=== PATIENT | female | born 1995 | race Caucasian/White ===

== ENCOUNTER 2018-10-24 13:53 | Day surgery (SDC) | payer OTHER ==
[2018-10-18 15:43] VITALS: BMI 27.4
[~2018-10-24 13:53] MED LIST: ACETAMINOPHEN TAB 500 MG TAB PO ONE; DEXAMETHASONE SOD PHOSPHATE 10 MG/ML 1 ML VIAL IV ONE; LACTATED RINGERS 1,000 ML IV SCH; MIDAZOLAM 2 MG/2 ML VIAL IV PRN; ONDANSETRON 4 MG/2 ML VIAL IVP ONE; TRANEXAMIC ACID 1,000 MG in SODIUM CHLORIDE 0.9% 100 ML IVPB ONE
[2018-10-24] MEDS ORDERED: fentaNYL (PF) 50 MCG/ML 2 ML AMP IVP ONE (14:31)
[2018-10-24] MEDS ORDERED: LIDOCAINE 1% 20 ML VIAL (10MG/ML) FOR IV START INTRADERMA ONE (14:32)
[2018-10-24] MEDS ORDERED: MELOXICAM 7.5 MG TAB PO ONE (14:44)
--- NOTE | 2018-10-24 14:46 | P.ANPRN ---
Procedure Note - Anesthesia - Nerve Block Performed Left Adductor Canal Single Time Out Performed: Yes Date of Procedure: 10/24/18 Procedure Start Time: 14:31 Procedure Stop Time: 14:41 Location of Patient Procedure: PreOp Indication: Acute Post-Operative Pain, Requested by physician Sedation Type: Sedate with meaningful contact maintained Position: Supine Catheter: None Needle Types: Pajunk Needle Gauge: 21 Technique: Ultrasound Injectate: 0.5% Ropivacaine (see comment for volume) (ropi 0.5% 30cc + 4mg dexamethasone) Blood Aspirated: No Pain Paresthesia on Injection Noted: No Resistance on Injection: Normal Events: Uneventful and Well Tolerated
[2018-10-24] MEDS ORDERED: DEXAMETHASONE SOD PHOSPHATE 4 MG/ML 1 ML VIAL ONE (15:00)
[2018-10-24] MEDS ORDERED: fentaNYL (PF) 50 MCG/ML 2 ML AMP ONE (15:00)
[2018-10-24] MEDS ORDERED: LIDOCAINE 1% INJ 10MG/ML (20 ML MDV) ONE (15:00)
[2018-10-24] MEDS ORDERED: MIDAZOLAM 2 MG/2 ML VIAL ONE (15:00)
[2018-10-24] MEDS ORDERED: PROPOFOL 10 MG/ML 20 ML VIAL IV ONE (15:00)
[2018-10-24] MEDS ORDERED: HYDROmorphone (PF) 1 MG/ML ONE (15:00)
[2018-10-24] MEDS ORDERED: ROPIVACAINE 5 MG/ML 30 ML VIAL ONE (15:00)
[2018-10-24] MEDS ORDERED: ceFAZolin 1,000 MG in SODIUM CHLORIDE 0.9% 1,000 ML IRRIGATION ONE (15:43)
[2018-10-24] MEDS ORDERED: LACTATED RINGERS 1,000 ML IV ONE (16:26)
[2018-10-24 16:53] VITALS: TEMP 98.1
[2018-10-24] MEDS: HYDROmorphone 0.5 MG/0.5 ML SYRINGE IVP PRN ×2 (17:06→17:12)
[2018-10-24 17:12] VITALS: RESP 18
[2018-10-24] MEDS ORDERED: HYDROcodone/APAP 7.5-325MG 1 EACH TAB PO ONE (17:51)
--- NOTE | 2018-10-24 18:00 | OP ---
OPERATIVE REPORT DATE OF PROCEDURE: 10/24/2018. PREOPERATIVE DIAGNOSIS: Left knee anterior cruciate ligament rupture. POSTOPERATIVE DIAGNOSIS: Left knee anterior cruciate ligament rupture. PROCEDURE PERFORMED: Left knee anterior cruciate ligament reconstruction with hamstring autograft. SURGEON: Bryant Cristina MD. ENERGY PROJECT ENGINEER: Deangelo ARNOLD. ANESTHESIA: General endotracheal. ESTIMATED BLOOD LOSS: Minimal. TOURNIQUET TIME: 42 minutes at 250 mmHg. DRAINS: None. COMPLICATIONS: None apparent. DISPOSITION: Postanesthesia Care unit. INDICATIONS: Estela is a 23-year-old female who injured her left knee. Physical examination and MRI are consistent with a complete rupture of the anterior cruciate ligament. A long discussion with her with regard to treatment options. At this point, she does wish to proceed with operative intervention. Risks were explained to the patient which include, but are not limited to risk of infection, nerve damage, bleeding, pain, instability, deep vein thrombosis which could lead to fatal pulmonary embolism and graft rerupture. The patient understands these risks and wished to proceed with surgical procedure. Examination under anesthesia: Range of motion: Right full, left full. Effusion: Right none, left mild. Brice's right normal with good end point. Left: Increased 5 mm with soft end point. Pivot shift right grade 0, left grade 1. Posterior drawer right with good end point, left good end point. Varus laxity right none, left none valgus laxity right none, left none. External rotation: Right normal, left normal. ARTHROSCOPIC FINDINGS: Suprapatellar pouch is normal. Medial gutter normal. Lateral gutter normal. Patella normal chondral surfaces. Trochlea normal chondral surfaces. Patellar tracking is normal. Medial femoral condyle: Normal chondral surfaces. Medial tibial plateau: Normal chondral surfaces. Medial meniscus was normal. Lateral femoral condyle normal chondral surfaces, lateral tibial plateau normal chondral surfaces. Lateral meniscus was normal. Anterior cruciate ligament: Complete midsubstance rupture of the anterior cruciate ligament, posterior cruciate ligament normal. DESCRIPTION OF THE PROCEDURE: Patient identified in preop holding area. Surgical site was marked by both the patient and myself. She was given 2 g of Ancef IV for prophylactic purposes. She was then transported to the operative suite. She was placed supine on the operative table. General anesthetic was then administered and dosed per the anesthesia without apparent complication. Examination under anesthesia was then performed of both knees. The findings noted above. Tourniquet was then placed high on the left upper thigh well-padded in preparation for surgery. The tourniquet was not inflated throughout the entire procedure. The patient's left lower extremity was then prepped and draped in usual sterile fashion. Standard surgical pause undertaken to ensure the operating the correct site and that we were operating on the correct site and appropriate preoperative antibiotics were given. All staff were in agreement we proceeded. The knee was then insufflated to 120 mL sterile saline solution. This was done to gradually distend the joint. A standard inferolateral portal was then made. A 30 degree arthroscope was introduced into the suprapatellar pouch. The arthroscopic pump pressure was set to 60 mmHg and maintained at that level throughout the entire case. Next utilizing an 18-gauge spinal needle to topically localize the placement, the inferomedial port was made under direct visualization. A standard diagnostic arthroscopy of the knee was then performed. The findings noted as above. Of note, there was suggestion of a medial meniscus tear on her preoperative MRI. The medial meniscus was carefully probed both the superior and inferior surface of the posterior horn as well as posterior root attachment. There was no evidence of a meniscus tear. The arthroscope was then placed medial to the posterior cruciate ligament through the notch of the posteromedial compartment knee. I was able to visualize the posterior meniscocapsular junction. There was no evidence of a ramp lesion. At this point time, we proceeded with harvesting the hamstring tendons for autograft. The arthroscopic equipment was removed from the knee. The leg was then exsanguinated with an Esmarch dressing. The tourniquet was then inflated to 250 mmHg. A small longitudinal incision was then made approximately 1.5 cm medial to the tibial tubercle. Dissection carried down through the subcutaneous tissues until the sartorius tendon was identified. The sartorius was then incised using an L-shaped incision. The sartorius tendon was then retracted and the gracilis and semitendinosus tendons were identified. These tendons were then tagged with 2-0 Vicryl sutures. The tendons were then released from their insertion onto the tibia and stripped of their soft tissue attachments using a blunt technique as well as using scissors. The tendons were then harvested using a closed tendon stripper. The tendons then taken to the back table where muscle fibers were scraped off the tendons. The ends of the tendons were then whip stitched using a #2 Orthocord suture. The tendon was then double the form of 4 stranded hamstring graft. The graft diameter was measured a size at 7 mm. operator/assistant foreman was critical at this portion of the case. They provided adequate exposure to safely harvest the hamstring tendons. In addition the registered dental assistant completed the graft preparation allowing for decreased operating time further enhancing the safety of the procedure. Attention was then returned to the knee. The remnants of the anterior cruciate ligament then debrided utilizing arthroscopic shaver. The NetClarity ACL guide was then placed into the knee with tip held flush against the lateral wall of the notch. The knee was then brought into full extension. The tibial guide pin drilled from the anteromedial tibia into the knee. The knee was then flexed and pin positioned arthroscopically assessed to ensure that it was in the proper position. The tibial tunnel was then created using a cannulated reamer equal size of the hamstring graft was 7 mm. A minimal lateral notchplasty was then performed utilizing the synovial shaver in a william-type fashion. The femoral origin of the anterior cruciate ligament was clearly identified. The femoral guide was then placed at the origin of the anterior cruciate ligament with a planned back wall thickness of 1 mm. Femoral tunnel was then created with a cannulated reamer to a depth of 20 mm. The size of the reamer was again same size of the hamstring graft. Next, a 4.5 mm cannulated drill was used to penetrate the lateral femoral cortex. The Biomet toggle lock femoral fixation device was then opened. The graft was placed through the closed loop of the device. A Beath pin was passed through the tibial and femoral tunnels, now through the soft tissues of the lateral thigh. The lead sutures of the fixation device were then placed in the eye with fixation device advanced through the tunnels and soft tissues of the lateral thigh. The device was then advanced through the tunnels and locked on the lateral femoral cortex. The closed loop was then shortened and the graft advanced to the base of the femoral tunnel. Femoral fixation was excellent. The graft was then cycled 30 times. No impingement was noted on the intercondylar roof or lateral intercondylar wall. Tibial fixation was then achieved using a bioabsorbable Interfix screw and sheath. This was performed at 20 degrees of flexion with a posterior drawer force applied to the tibia. This resulted in excellent fixation. The arthroscope was placed back into the knee and the graft again visualized. Tension of the graft seen to be excellent. No impingement was noted. Full range of motion was noted. The Brice test noted to be normal. At this point, the arthroscopic equipment was removed from the knee. The tibial incision was thoroughly irrigated. The tourniquet was deflated. Total tourniquet time for the procedure was 42 minutes. Next, the sartorius fascia was closed with 2-0 Vicryl interrupted suture. This subcutaneous tissue closed with 2-0 Vicryl interrupted suture and the skin was closed with 3-0 nylon interrupted suture. The arthroscopic portals were closed with 3-0 nylon interrupted suture. Sterile compressive dressing was then applied. The patient placed into a hinged knee brace, locked in full extension. The patient tolerated the procedure well and was transferred recovery room in good condition. Rehab plan: Routine anterior cruciate ligament reconstruction rehab protocol. MMIRMAL / TANESHA: [id number] /
[2018-10-24 18:13] VITALS: BP 136/85; PULSE 93
== END 2018-10-24 18:38 | disposition home or self-care (01) ==
LOC: OR 13:53
PROVIDERS: ATTEND Orthopaedic Surgery Sports Medicine
DX: S83.512A Sprain of anterior cruciate ligament of left knee, initial encounter (principal); X50.1XXA Overexertion from prolonged static or awkward postures, initial encounter; Y93.64 Activity, baseball
CPT/HCPCS: 29888; 64447; 81025; C1713; J2250; J1100 ×2; J0690 ×2; J2405; J2001; J3010; J1170 ×2; J2795; J2704

== ENCOUNTER 2021-02-24 05:35 | Emergency (ER) | payer OTHER ==
[2021-02-24 05:44] VITALS: TEMP 98.1
--- NOTE | 2021-02-24 06:45 | ED ---
General Adult HPI - General Chief complaint: Vaginal Bleeding Stated complaint: Cramping Time Seen by Provider: 02/24/21 06:03 Source: patient, RN notes reviewed Mode of arrival: ambulatory Limitations: no limitations - History of Present Illness Initial comments: 25-year-old female presents emergency Department chief complaint of vaginal bleeding. Patient states that she had a miscarriage 2 weeks ago she states she was only approximately 5 weeks . Patient did follow-up with her NURSING MANAGER on February 11 2021 was tolerating was clear patient that she is o+ blood type. Patient states that she started having episodes of abdominal, pelvic cramping states that she has been spotting and felt that she passed some tissue. Patient was concerned she states bleeding has stopped, she has mild cramping only currently. Patient does have a history of PCO as denies any dysuria, hematuria denies any fevers chills no nausea vomiting diarrhea constipation - Related Data Previous Rx's Medication Instructions Recorded HYDROcodone/APAP 7.5-325MG [[place] 1 - 2 each PO Q6HR PRN #56 tab 10/24/18 7.5-325] Allergies Allergy/AdvReac Type Severity Reaction Status Date / Time No Known Allergies Allergy Verified 02/24/21 05:44 Review of Systems ROS Statement: Those systems with pertinent positive or pertinent negative responses have been documented in the HPI. ROS Other: All systems not noted in ROS Statement are negative. Past Medical History Past Medical History: No Reported History History of Any Multi-Drug Resistant Organisms: None Reported Additional Past Surgical History / Comment(s): wisdom teeth removed with anesthesia Past Anesthesia/Blood Transfusion Reactions: No Reported Reaction Past Psychological History: No Psychological Hx Reported Smoking Status: Never smoker Past Alcohol Use History: Occasional Past Drug Use History: None Reported - Past Family History Mother Family Medical History: No Reported History General Exam Limitations: no limitations General appearance: alert, in no apparent distress Head exam: Present: atraumatic, normocephalic, normal inspection Respiratory exam: Present: normal lung sounds bilaterally. Absent: respiratory distress, wheezes, rales, rhonchi, stridor Cardiovascular Exam: Present: regular rate, normal rhythm, normal heart sounds. Absent: systolic murmur, diastolic murmur, rubs, gallop, clicks GI/Abdominal exam: Present: soft, tenderness (Mild suprapubic), normal bowel sounds. Absent: distended, guarding, rebound, rigid Back exam: Absent: CVA tenderness (R), CVA tenderness (L) Neurological exam: Present: alert Skin exam: Present: warm, dry, intact, normal color. Absent: rash Course Vital Signs 02/24/21 05:41 Temperature 98.1 F Pulse Rate 95 Respiratory 18 Rate Blood Pressure 146/100 O2 Sat by Pulse 98 Oximetry Medical Decision Making - Medical Decision Making Labs unremarkable on ultrasound is unremarkable patient will be discharged in stable condition return parameters were discussed. - Lab Data Result diagrams: 02/24/21 06:52 02/24/21 06:52 Lab Results 02/24/21 02/24/21 02/24/21 Range/Units 06:46 06:52 06:52 WBC 5.3 (3.8-10.6) k/uL RBC 4.95 (3.80-5.40) m/uL Hgb 14.3 (11.4-16.0) gm/dL Hct 42.3 (34.0-46.0) % MCV 85.6 (80.0-100.0) fL MCH 28.9 (25.0-35.0) pg MCHC 33.7 (31.0-37.0) g/dL RDW 12.2 (11.5-15.5) % Plt Count 225 (150-450) k/uL MPV 8.6 Neutrophils % 63 % Lymphocytes % 25 % Monocytes % 7 % Eosinophils % 2 % Basophils % 1 % Neutrophils # 3.3 (1.3-7.7) k/uL Lymphocytes # 1.3 (1.0-4.8) k/uL Monocytes # 0.4 (0-1.0) k/uL Eosinophils # 0.1 (0-0.7) k/uL Basophils # 0.0 (0-0.2) k/uL Sodium 137 (137-145) mmol/L Potassium 4.2 (3.5-5.1) mmol/L Chloride 102 (98-107) mmol/L Carbon Dioxide 25 (22-30) mmol/L Anion Gap 10 mmol/L BUN 13 (7-17) mg/dL Creatinine 0.77 (0.52-1.04) mg/dL Est GFR (CKD-EPI)AfAm >90 (>60 ml/min/1.73 sqM) Est GFR (CKD-EPI)NonAf >90 (>60 ml/min/1.73 sqM) Glucose 93 (74-99) mg/dL Calcium 9.5 (8.4-10.2) mg/dL Urine Color Urine Appearance (Clear) Urine pH (5.0-8.0) Ur Specific [place] (1.001-1.035) Urine Protein (Negative) Urine Glucose (UA) (Negative) Urine Ketones (Negative) Urine Blood (Negative) Urine Nitrite (Negative) Urine Bilirubin (Negative) Urine Urobilinogen (<2.0) mg/dL Ur Leukocyte Esterase (Negative) Blood Type O Positive Blood Type Recheck No Previous Record Bld Type Recheck Status [facility] ONLY 02/24/21 Range/Units 06:52 WBC (3.8-10.6) k/uL RBC (3.80-5.40) m/uL Hgb (11.4-16.0) gm/dL Hct (34.0-46.0) % MCV (80.0-100.0) fL MCH (25.0-35.0) pg MCHC (31.0-37.0) g/dL RDW (11.5-15.5) % Plt Count (150-450) k/uL MPV Neutrophils % % Lymphocytes % % Monocytes % % Eosinophils % % Basophils % % Neutrophils # (1.3-7.7) k/uL Lymphocytes # (1.0-4.8) k/uL Monocytes # (0-1.0) k/uL Eosinophils # (0-0.7) k/uL Basophils # (0-0.2) k/uL Sodium (137-145) mmol/L Potassium (3.5-5.1) mmol/L Chloride (98-107) mmol/L Carbon Dioxide (22-30) mmol/L Anion Gap mmol/L BUN (7-17) mg/dL Creatinine (0.52-1.04) mg/dL Est GFR (CKD-EPI)AfAm (>60 ml/min/1.73 sqM) Est GFR (CKD-EPI)NonAf (>60 ml/min/1.73 sqM) Glucose (74-99) mg/dL Calcium (8.4-10.2) mg/dL Urine Color Light Yellow Urine Appearance Clear (Clear) Urine pH 6.5 (5.0-8.0) Ur Specific [place] 1.006 (1.001-1.035) Urine Protein Negative (Negative) Urine Glucose (UA) Negative (Negative) Urine Ketones Negative (Negative) Urine Blood Negative (Negative) Urine Nitrite Negative (Negative) Urine Bilirubin Negative (Negative) Urine Urobilinogen <2.0 (<2.0) mg/dL Ur Leukocyte Esterase Negative (Negative) Blood Type Blood Type Recheck Bld Type Recheck Status Disposition Clinical Impression: Vaginal bleeding Disposition: HOME SELF-CARE Condition: Stable Instructions (If sedation given, give patient instructions): Miscarriage (ED) Additional Instructions: Please return to the Emergency Department if symptoms worsen or any other concerns. Is patient prescribed a controlled substance at d/c from ED?: No Referrals: None,Stated [Primary Care Provider] - 1-2 days Time of Disposition: 08:21
[2021-02-24 07:00] LABS: Basophils % (A) 1 %; Eosinophils # (A) 0.1 k/uL (0-0.7); Eosinophils % (A) 2 %; HCT 42.3 % (34.0-46.0); HGB 14.3 gm/dL (11.4-16.0); Lymphocytes # (A) 1.3 k/uL (1.0-4.8); Lymphocytes % (A) 25 %; MCH 28.9 pg (25.0-35.0); MCHC 33.7 g/dL (31.0-37.0); MCV 85.6 fL (80.0-100.0); Mean Platelet Volume 8.6; Monocytes # (A) 0.4 k/uL (0-1.0); Monocytes % (A) 7 %; Neutrophils # (A) 3.3 k/uL (1.3-7.7); Neutrophils % (A) 63 %; Platelet Count 225 k/uL (150-450); RBC 4.95 m/uL (3.80-5.40); RDW 12.2 % (11.5-15.5); WBC 5.3 k/uL (3.8-10.6)
[2021-02-24 07:02] LABS: Appearance,Urine Clear (Clear); Bilirubin,Urine Negative (Negative); Blood,Urine Negative (Negative); Color,Urine Light Yellow; Glucose,Urine (UA) Negative (Negative); Ketones,Urine Negative (Negative); Leukocyte Esterase,Urine Negative (Negative); Nitrite,Urine Negative (Negative); PH, Urine 6.5 (5.0-8.0); Protein,Urine Negative (Negative); Specific Gravity,Urine 1.006 (1.001-1.035); Urobilinogen,Urine <2.0 mg/dL (<2.0)
[2021-02-24 07:10] LABS: African American GFR (CKD) >90 (>60 ml/min/1.73 sqM); Anion Gap 10 mmol/L; Blood Urea Nitrogen 13 mg/dL (7-17); Calcium 9.5 mg/dL (8.4-10.2); Carbon Dioxide 25 mmol/L (22-30); Chloride 102 mmol/L (98-107); Glucose 93 mg/dL (74-99); Non-African American GFR(CKD) >90 (>60 ml/min/1.73 sqM); Potassium 4.2 mmol/L (3.5-5.1); Sodium 137 mmol/L (137-145)
--- NOTE | 2021-02-24 07:41 | US ---
EXAMINATION TYPE: US pelvic complete DATE OF EXAM: 02/24/2021 COMPARISON: NONE CLINICAL HISTORY: Miscarriage, possible retained products. Patient states having a confirmed miscarri age x 2 weeks ago. Spotting and cramping today. TECHNIQUE: Transabdominal (TA). Transabdominal sonographic images of the pelvis were acquired. Date of LMP: 02/12/2021, EXAM MEASUREMENTS: Uterus: 8.1 x 5.1 x 4.0 cm Endometrial Stripe: 1.1 cm Right Ovary: 3.4 x 2.2 x 2.8 cm Left Ovary: 2.6 x 2.2 x 1.9 cm 1. Uterus: Anteverted wnl 2. Endometrium: wnl 3. Right Ovary: simple cyst seen = 3.0 x 2.9 x 2.6 cm 4. Left Ovary: follicles seen Spectral, color and waveform doppler imaging shows good arterial and venous flow within the ovaries ; there is no evidence for ovarian torsion. 5. Bilateral Adnexa: wnl 6. Posterior cul-de-sac: no free fluid Cervix- wnl IMPRESSION: 1. 3 cm right ovarian cyst.
[2021-02-24 08:30] VITALS: BP 119/87; PULSE 77; RESP 16
== END 2021-02-24 08:29 | disposition home or self-care (01) ==
LOC: EC 05:35
DX: O20.8 Other hemorrhage in early pregnancy (principal); Z3A.01 Less than 8 weeks gestation of pregnancy
CPT/HCPCS: 36415; 76856; 80048; 81003; 85025; 86900; 86901; 93975; 99284

== ENCOUNTER 2022-03-19 23:11 | Emergency (ER) | payer OTHER ==
[2022-03-19 23:27] VITALS: BP 149/93; PULSE 84; RESP 16
[2022-03-20 00:30] LABS: Basophils # (A) 0.1 k/uL (0-0.2); Basophils % (A) 1 %; Eosinophils # (A) 0.1 k/uL (0-0.7); Eosinophils % (A) 1 %; HCT 37.9 % (34.0-46.0); HGB 13.3 gm/dL (11.4-16.0); Lymphocytes # (A) 2.1 k/uL (1.0-4.8); Lymphocytes % (A) 23 %; MCH 29.3 pg (25.0-35.0); MCHC 35.2 g/dL (31.0-37.0); MCV 83.2 fL (80.0-100.0); Mean Platelet Volume 9.3; Monocytes # (A) 0.5 k/uL (0-1.0); Monocytes % (A) 5 %; Neutrophils # (A) 6.1 k/uL (1.3-7.7); Neutrophils % (A) 68 %; Platelet Count 190 k/uL (150-450); RBC 4.56 m/uL (3.80-5.40); RDW 12.4 % (11.5-15.5)
[2022-03-20 00:45] LABS: ALT 18 U/L (4-34); AST 19 U/L (14-36); African American GFR (CKD) >90 (>60 ml/min/1.73 sqM); Albumin 3.6 g/dL (3.5-5.0); Alkaline Phosphatase 45 U/L (38-126); Anion Gap 8 mmol/L; Blood Urea Nitrogen 8 mg/dL (7-17); Calcium 8.7 mg/dL (8.4-10.2); Carbon Dioxide 21 mmol/L (22-30); Chloride 107 mmol/L (98-107); Glucose 86 mg/dL (74-99); Magnesium 1.7 mg/dL (1.6-2.3); Non-African American GFR(CKD) >90 (>60 ml/min/1.73 sqM); Sodium 136 mmol/L (137-145); Total Bilirubin 0.3 mg/dL (0.2-1.3); Total Protein 6.3 g/dL (6.3-8.2)
[2022-03-20 00:51] LABS: Appearance,Urine Cloudy (Clear); Bacteria,Urine Occasional /hpf; Bilirubin,Urine Negative (Negative); Blood,Urine Large (Negative); Color,Urine Light Yellow; Glucose,Urine (UA) Negative (Negative); Ketones,Urine Trace (Negative); Leukocyte Esterase,Urine Negative (Negative); Mucus,Urine Rare /hpf; Nitrite,Urine Negative (Negative); Protein,Urine Negative (Negative); RBC,Urine 15 /hpf (0-5); Specific Gravity,Urine 1.006 (1.001-1.035); Squamous Epithelial Cell,Urine 1 /hpf (0-4); Urobilinogen,Urine <2.0 mg/dL (<2.0); WBC,Urine 1 /hpf (0-5)
--- NOTE | 2022-03-20 01:07 | US ---
EXAMINATION TYPE: Transabdominal DATE OF EXAM: 03/20/2022 12:44 AM COMPARISON: NONE CLINICAL HISTORY: Vaginal bleed in . EXAM PERFORMED: Transabdominal (TA) EXAM MEASUREMENTS: GESTATIONAL AGE / DATING Dates by LMP: (13 weeks/2 days) EDC: 09/23/2022 Dates by First Scan: No previous this is first scan Dates by Current Scan for: (12 weeks/6 days) EDC: 09/26/2022 MATERNAL ANATOMY Uterus: Subchorionic hemorrhage visualized near fundus/ gestational sac. 2.6 x 1.9 x 2.3cm Right Ovary: wnl Left Ovary: Not visualized Post CDS / Adnexa: wnl Presence of free fluid: No Presence of corpus luteal cyst: No Presence of subchorionic bleed: Yes GESTATION / SURVEY CRL: 6.45cm (12 weeks/6 days) MSD: wnl Heart Rate: 158 bpm Rhythm: Normal IUP: Viable IUP visualized Date of LMP: 12/17/2021 Beta HcG (if available): None available IMPRESSION: The ultrasound gestational age is 12 weeks and 6 days. There is likely a small subchorionic hemorrhag e measuring 2.6 x 1.9 cm.
[2022-03-20 02:48] LABS: HCG,Quantitative Serum >225000.0 mIU/mL
[2022-03-20] MEDS ORDERED: CEPHALEXIN 500 MG CAP PO STA (03:26)
--- NOTE | 2022-03-20 03:26 | ED ---
General Adult HPI - General Chief complaint: Abdominal Pain Stated complaint: 13wks Preg, Cramping/Abd Pain Time Seen by Provider: 03/19/22 23:29 Source: patient Mode of arrival: ambulatory Limitations: no limitations - History of Present Illness Initial comments: This is a 26-year-old female presents emergency department for vaginal bleeding in . The patient is reportedly 14 weeks and stated that she had vaginal bleeding that started today. The patient did state that she had blood on the toilet paper when she wiped. The patient also stated that she had some very mild abdominal cramping. The patient stated that this preg luna is an IVF and she has had 2 previous miscarriages both at 4 and 5 weeks. The patient denied any other acute pain or complaints at this time. The patient was resting in bed and denied any fevers, chills as well as any nausea and vomiting. - Related Data Previous Rx's Medication Instructions Recorded HYDROcodone/APAP 7.5-325MG [[place] 1 - 2 each PO Q6HR PRN #56 tab 10/24/18 7.5-325] Cephalexin [Keflex] 500 mg PO Q6HR 5 Days #20 cap 03/20/22 Allergies Allergy/AdvReac Type Severity Reaction Status Date / Time No Known Allergies Allergy Verified 03/19/22 23:25 Review of Systems ROS Statement: Those systems with pertinent positive or pertinent negative responses have been documented in the HPI. ROS Other: All systems not noted in ROS Statement are negative. Past Medical History Past Medical History: No Reported History History of Any Multi-Drug Resistant Organisms: None Reported Additional Past Surgical History / Comment(s): wisdom teeth removed with anesthesia Past Anesthesia/Blood Transfusion Reactions: No Reported Reaction Past Psychological History: No Psychological Hx Reported Smoking Status: Never smoker Past Alcohol Use History: Occasional Past Drug Use History: None Reported - Past Family History Mother Family Medical History: No Reported History General Exam Limitations: no limitations General appearance: alert, in no apparent distress Head exam: Present: atraumatic, normocephalic, normal inspection Eye exam: Present: normal appearance, PERRL Pupils: Present: normal accommodation ENT exam: Present: normal exam, normal oropharynx, mucous membranes moist Neck exam: Present: normal inspection, full ROM Respiratory exam: Present: normal lung sounds bilaterally Cardiovascular Exam: Present: regular rate, normal rhythm, normal heart sounds GI/Abdominal exam: Present: soft, normal bowel sounds Speculum exam: Present: normal speculum exam. Absent: cervical discharge, vaginal bleeding By manual exam: Present: normal by manual exam. Absent: cervical motion tenderness, adnexal tenderness, adnexal mass Extremities exam: Present: normal inspection, full ROM, normal capillary refill Back exam: Present: normal inspection, full ROM Neurological exam: Present: alert, oriented X3, CN II-XII intact Psychiatric exam: Present: normal affect, normal mood Skin exam: Present: warm, dry Course Vital Signs 03/19/22 23:25 Pulse Rate 84 Respiratory 16 Rate Blood Pressure 149/93 O2 Sat by Pulse 98 Oximetry Medical Decision Making - Medical Decision Making Was pt. sent in by a medical professional or institution ([facility], [facility], urgent care, hospital, or skilled nursing...) When possible be specific @ -No Did you speak to anyone other than the patient for history (EMS, parent, family, police, friend...)? What history was obtained from this source @ -No Did you review nursing and triage notes (agree or disagree)? Why? @ -I reviewed and agree with nursing and triage notes Were old charts reviewed (outside hosp., previous admission, EMS record, old EKG , old radiological studies, urgent care reports/EKG's, skilled nursing records)? Report findings @ -No old charts were reviewed Differential Diagnosis (chest pain, altered mental status, abdominal pain women, abdominal pain men, vaginal bleeding, weakness, fever, dyspnea, syncope, headache, dizziness, GI bleed, back pain, seizure, CVA, palpatations, mental health)? @ -Spontaneous , subchorionic hemorrhage EKG interpreted by me (3pts min.). @ -None X-rays interpreted by me (1pt min.). @ -None done CT interpreted by me (1pt min.). @ -None done U/S interpreted by me (1pt. min.). @ - ultrasound was obtained and was interpreted by myself showing gestational age of 12 weeks and 6 days. There is likely a small subchorionic hemorrhage measuring 2.6 x 1.9 cm. What testing was considered but not performed or refused? (CT, X-rays, U/S, labs)? Why? @ -None What meds were considered but not given or refused? Why? @ -None Did you discuss the management of the patient with other professionals (professionals i.e. , PA, TOSSER, lab, RT, psych nurse, social insurance administrator, rotary cutter feeder, teacher, telecommunications officer, rehabilitation case coordinator)? Give summary @ -No Was smoking cessation discussed for >3mins.? @ -No Was critical care preformed (if so, how long)? @ -No Were there social determinants of health that impacted care today? How? (Homelessness, low income, unemployed, alcoholism, drug addiction, transportation, low edu. Level, literacy, decrease access to med. care, longterm, rehab)? @ -No Was there de-escalation of care discussed even if they declined (Discuss DNR or withdrawal of care, Hospice)? DNR status @ -No What co-morbidities impacted this encounter? (DM, HTN, Smoking, COPD, CAD, Cancer, CVA, ARF, Chemo, Hep., AIDS, mental health diagnosis, sleep apnea, morbid obesity)? @ -PCOS Was patient admitted / discharged? Hospital course, mention meds given and route, prescriptions, significant lab abnormalities, going to OR and other pertinent info. @ -The patient was seen and evaluated in the emergency department. Physical exam, the patient was resting in bed without any acute distress. Laboratory workup was within normal limits and the type and screen did take several hours to results however the patient was Rh+. The patient did not require program at this time. Ultrasound showed a intrauterine gestation measuring 12 weeks and 6 days with a small subchorionic hemorrhage likely as a cause of the patient's bleeding in . The patient's beta hCG was in line with the patient's gestational age. The speculum exam did not demonstrate any active bleeding in the cervical os was closed. The patient was seems still for discharge and was told to follow-up with her [facility] first thing on Monday morning for continued workup and evaluation. She was also advised report back to the emergency department if her pain or symptoms became acutely worse. The patient was agreeable to this and all her questions were answered. The patient was discharged home in stable condition with her . Undiagnosed new problem with uncertain prognosis? @ -No Drug Therapy requiring intensive monitoring for toxicity (Heparin, Nitro, Insulin, Cardizem)? @ -No Were any procedures done? @ -No Diagnosis/symptom? @ -Vaginal bleeding in secondary to subchorionic hemorrhage Acute, or Chronic, or Acute on Chronic? @ -Acute Uncomplicated (without systemic symptoms) or Complicated (systemic symptoms)? @ -Uncomplicated Side effects of treatment? @ -No Exacerbation, Progression, or Severe Exacerbation? @ -No Poses a threat to life or bodily function? How? (Chest pain, [place], CO, pneumonia, PE, COPD, DKA, ARF, appy, cholecystitis, CVA, Diverticulitis, Homicidal, Suicidal, threat to staff... and all critical care pts) @ -No - Lab Data Result diagrams: 03/19/22 23:55 03/19/22 23:55 Lab Results 03/19/22 03/19/22 03/19/22 Range/Units 23:55 23:55 23:55 WBC 9.0 (3.8-10.6) k/uL RBC 4.56 (3.80-5.40) m/uL Hgb 13.3 (11.4-16.0) gm/dL Hct 37.9 (34.0-46.0) % MCV 83.2 (80.0-100.0) fL MCH 29.3 (25.0-35.0) pg MCHC 35.2 (31.0-37.0) g/dL RDW 12.4 (11.5-15.5) % Plt Count 190 (150-450) k/uL MPV 9.3 Neutrophils % 68 % Lymphocytes % 23 % Monocytes % 5 % Eosinophils % 1 % Basophils % 1 % Neutrophils # 6.1 (1.3-7.7) k/uL Lymphocytes # 2.1 (1.0-4.8) k/uL Monocytes # 0.5 (0-1.0) k/uL Eosinophils # 0.1 (0-0.7) k/uL Basophils # 0.1 (0-0.2) k/uL Sodium 136 L (137-145) mmol/L Potassium 4.0 (3.5-5.1) mmol/L Chloride 107 (98-107) mmol/L Carbon Dioxide 21 L (22-30) mmol/L Anion Gap 8 mmol/L BUN 8 (7-17) mg/dL Creatinine 0.47 L (0.52-1.04) mg/dL Est GFR (CKD-EPI)AfAm >90 (>60 ml/min/1.73 sqM) Est GFR (CKD-EPI)NonAf >90 (>60 ml/min/1.73 sqM) Glucose 86 (74-99) mg/dL Calcium 8.7 (8.4-10.2) mg/dL Magnesium 1.7 (1.6-2.3) mg/dL Total Bilirubin 0.3 (0.2-1.3) mg/dL AST 19 (14-36) U/L ALT 18 (4-34) U/L Alkaline Phosphatase 45 (38-126) U/L Total Protein 6.3 (6.3-8.2) g/dL Albumin 3.6 (3.5-5.0) g/dL HCG, Quant >580375.0 mIU/mL Urine Color Light Yellow Urine Appearance Cloudy H (Clear) Urine pH 5.0 (5.0-8.0) Ur Specific Sundance 1.006 (1.001-1.035) Urine Protein Negative (Negative) Urine Glucose (UA) Negative (Negative) Urine Ketones Trace H (Negative) Urine Blood Large H (Negative) Urine Nitrite Negative (Negative) Urine Bilirubin Negative (Negative) Urine Urobilinogen <2.0 (<2.0) mg/dL Ur Leukocyte Esterase Negative (Negative) Urine RBC 15 H (0-5) /hpf Urine WBC 1 (0-5) /hpf Ur Squamous Epith Cells 1 (0-4) /hpf Urine Bacteria Occasional H (None) /hpf Urine Mucus Rare H (None) /hpf Blood Type Blood Type Recheck Bld Type Recheck Status Antibody Screen Spec Expiration Date 03/19/22 Range/Units 23:55 WBC (3.8-10.6) k/uL RBC (3.80-5.40) m/uL Hgb (11.4-16.0) gm/dL Hct (34.0-46.0) % MCV (80.0-100.0) fL MCH (25.0-35.0) pg MCHC (31.0-37.0) g/dL RDW (11.5-15.5) % Plt Count (150-450) k/uL MPV Neutrophils % % Lymphocytes % % Monocytes % % Eosinophils % % Basophils % % Neutrophils # (1.3-7.7) k/uL Lymphocytes # (1.0-4.8) k/uL Monocytes # (0-1.0) k/uL Eosinophils # (0-0.7) k/uL Basophils # (0-0.2) k/uL Sodium (137-145) mmol/L Potassium (3.5-5.1) mmol/L Chloride (98-107) mmol/L Carbon Dioxide (22-30) mmol/L Anion Gap mmol/L BUN (7-17) mg/dL Creatinine (0.52-1.04) mg/dL Est GFR (CKD-EPI)AfAm (>60 ml/min/1.73 sqM) Est GFR (CKD-EPI)NonAf (>60 ml/min/1.73 sqM) Glucose (74-99) mg/dL Calcium (8.4-10.2) mg/dL Magnesium (1.6-2.3) mg/dL Total Bilirubin (0.2-1.3) mg/dL AST (14-36) U/L ALT (4-34) U/L Alkaline Phosphatase (38-126) U/L Total Protein (6.3-8.2) g/dL Albumin (3.5-5.0) g/dL HCG, Quant mIU/mL Urine Color Urine Appearance (Clear) Urine pH (5.0-8.0) Ur Specific Sund[place] (1.001-1.035) Urine Protein (Negative) Urine Glucose (UA) (Negative) Urine Ketones (Negative) Urine Blood (Negative) Urine Nitrite (Negative) Urine Bilirubin (Negative) Urine Urobilinogen (<2.0) mg/dL Ur Leukocyte Esterase (Negative) Urine RBC (0-5) /hpf Urine WBC (0-5) /hpf Ur Squamous Epith Cells (0-4) /hpf Urine Bacteria (None) /hpf Urine Mucus (None) /hpf Blood Type O Positive Blood Type Recheck O Pos Bld Type Recheck Status No Antibody Screen NEGATIVE Spec Expiration Date 03/22/20222354 Disposition Clinical Impression: Vaginal bleeding during , Subchorionic hematoma in first trimester Disposition: HOME SELF-CARE Condition: Stable Instructions (If sedation given, give patient instructions): Subchorionic Hemorrhage (ED) Prescriptions: Cephalexin [Keflex] 500 mg PO Q6HR 5 Days #20 cap Is patient prescribed a controlled substance at d/c from ED?: No Referrals: None,Stated [Primary Care Provider] - 1-2 days Dalia Gomes MD [STAFF PHYSICIAN] - 1-2 days Time of Disposition: 03:25
== END 2022-03-20 03:49 | disposition home or self-care (01) ==
LOC: EC 23:11
DX: O46.91 Antepartum hemorrhage, unspecified, first trimester (principal); O43.891 Other placental disorders, first trimester; Z3A.13 13 weeks gestation of pregnancy
CPT/HCPCS: 36415; 76801; 80053; 81001; 83735; 84702; 85025; 86850; 86900; 86901; 99284

== ENCOUNTER → 2022-04-01 | Outpatient (CLI) | payer OTHER ==
[2022-04-01 23:02] LABS: Appearance,Urine Clear (Clear); Bilirubin,Urine Negative (Negative); Blood,Urine Negative (Negative); Color,Urine Yellow (Yellow); Ketones,Urine Trace mg/dL (Negative); Nitrite,Urine Negative (Negative); Specific Gravity,Urine 1.018 (1.001-1.030); Urobilinogen,Urine 0.2 (0.2,1.0)
== END | disposition home or self-care (01) ==
LOC: LABWHC1 12:39
PROVIDERS: ATTEND Obstetrics & Gynecology
DX: Z34.81 Encounter for supervision of other normal pregnancy, first trimester (principal); Z3A.00 Weeks of gestation of pregnancy not specified
CPT/HCPCS: 36415; 81003; 82950; 86701; 87086

== ENCOUNTER 2022-07-01 14:44 | Outpatient (CLI) | payer OTHER ==
[2022-07-01 16:46] VITALS: BP 129/79; PULSE 84; RESP 16; TEMP 98.2
--- NOTE | 2022-07-12 18:06 | P.MSEPDOC ---
Presenting Problems - Arrival Data Date of Arrival on Unit: 07/01/22 Time of Arrival on Unit: 14:44 Mode of Transport: Ambulatory - Complaint OB-Reason for Admission/Chief Complaint: Decreased Movement Comment: pt presents to triage with c/o decreased movements Medical History - Information : 3 Para: 0 Term: 0 : 0 Abortions: Spontaneous or Elective: 2 Number of Living Children: 0 - Gestational Age Gestational Age by PILAR (wks/days): 28 Weeks and 0 Days - History Complications: Other Comment: IVF Review of Systems - Review of Systems Constitutional: No problems Breast: No problems ENT: No problems Cardiovascular: No problems Respiratory: No problems Gastrointestinal: No problems Genitourinary: No problems Musculoskeletal: No problems Neurological: No problems Skin: No problems Vital Signs - Temperature Temperature: 98.2 F Temperature Source: Oral - Pulse Right Brachial Pulse Rate: 84 Pulse Assessment Method: Automatic Cuff - Respirations Respiratory Rate: 16 Oxygen Delivery Method: Room Air O2 Sat by Pulse Oximetry: 99 - Blood Pressure Right Arm Blood Pressure: 129/79 Blood Pressure Mean: 95 Blood Pressure Source: Automatic Cuff Medical Screen Scoring - Assessment - Baby A Baseline FHR: 140 Heart Rate - NICHD Category: Category I (Normal) NST: Reactive Physician Notification - Physician Notified Physician Notified Date: 07/01/22 Physician Notified Time: 15:35 Physician: Isatu Rae New Order Received: Yes (dc home) Maternal Triage Index - Urgent/Priority 2 Urgent Priority 2: Yes Provider Notified: Isatu Rae Provider Notified Time: 15:35 Criteria Met for Priority 2: ok to dc home at this time Disposition - Disposition OB Disposition: Discharge to home, Written follow up instructions reviewed Discharge Date: 07/01/22 Discharge Time: 15:45 I agree with the RN Medical Screening Exam: Yes Case reviewed; plan agreed upon as documented in EMR&OBIX.: Yes Diagnosis: DECREASED MOVEMENTS, THIRD TRIMESTER, FETUS 1
== END 2022-07-01 15:45 | disposition home or self-care (01) ==
LOC: FBPOP 14:44
PROVIDERS: ATTEND Obstetrics & Gynecology Obstetrics
DX: O36.8131 Decreased fetal movements, third trimester, fetus 1 (principal); Z3A.28 28 weeks gestation of pregnancy; Z91.040 Latex allergy status; Z79.82 Long term (current) use of aspirin
CPT/HCPCS: 59025; G0463; 99213

== ENCOUNTER 2022-07-18 12:16 | Outpatient (CLI) | payer OTHER ==
[2022-07-18] MEDS ORDERED: METOCLOPRAMIDE 5 MG/ML 2 ML VIAL IVP STA (13:34)
[2022-07-18] MEDS ORDERED: LACTATED RINGERS 1,000 ML IV ONE (13:45)
[2022-07-18] MEDS ORDERED: FAMOTIDINE 20 MG/2 ML VIAL IV SCH (13:45)
[2022-07-18 13:50] LABS: Basophils % (A) 0 %; Eosinophils # (A) 0.1 k/uL (0-0.7); Eosinophils % (A) 1 %; HCT 41.2 % (34.0-46.0); HGB 13.5 gm/dL (11.4-16.0); Lymphocytes # (A) 0.8 k/uL (1.0-4.8); Lymphocytes % (A) 9 %; MCH 29.5 pg (25.0-35.0); MCHC 32.8 g/dL (31.0-37.0); MCV 89.9 fL (80.0-100.0); Mean Platelet Volume 9.1; Monocytes # (A) 0.5 k/uL (0-1.0); Monocytes % (A) 5 %; Neutrophils # (A) 8.1 k/uL (1.3-7.7); Neutrophils % (A) 84 %; Platelet Count 165 k/uL (150-450); RBC 4.58 m/uL (3.80-5.40); RDW 13.6 % (11.5-15.5); WBC 9.7 k/uL (3.8-10.6)
[2022-07-18 15:03] LABS: African American GFR (CKD) >90 (>60 ml/min/1.73 sqM); Anion Gap 10 mmol/L; Blood Urea Nitrogen 10 mg/dL (7-17); Calcium 8.6 mg/dL (8.4-10.2); Carbon Dioxide 21 mmol/L (22-30); Chloride 102 mmol/L (98-107); Glucose 75 mg/dL (74-99); Non-African American GFR(CKD) >90 (>60 ml/min/1.73 sqM); Sodium 133 mmol/L (137-145)
[2022-07-18 15:20] LABS: Appearance,Urine Cloudy (Clear); Bilirubin,Urine 1+ (Negative); Blood,Urine Negative (Negative); Color,Urine Yellow; Glucose,Urine (UA) Negative (Negative); Leukocyte Esterase,Urine Trace (Negative); Mucus,Urine Occasional /hpf; Nitrite,Urine Negative (Negative); PH, Urine 5.5 (5.0-8.0); Protein,Urine 1+ (Negative); RBC,Urine 1 /hpf (0-5); Specific Gravity,Urine 1.026 (1.001-1.035); Squamous Epithelial Cell,Urine 2 /hpf (0-4); WBC,Urine 7 /hpf (0-5)
[2022-07-18 15:23] LABS: Ketones,Urine 4+ (Negative)
[2022-07-18 23:40] VITALS: BP 134/91; PULSE 113; RESP 16; TEMP 97.7
--- NOTE | 2022-07-26 14:10 | P.MSEPDOC ---
Presenting Problems - Arrival Data Date of Arrival on Unit: 07/18/22 Time of Arrival on Unit: 12:16 Mode of Transport: Ambulatory - Complaint OB-Reason for Admission/Chief Complaint: Acute Nausea/Vomiting Comment: pt presents to triage for n/v since yesterday morning, has not been able to keep anything down including the toast she tried eating this am for breakfast Medical History - Information : 3 Para: 2 Term: 2 : 0 Abortions: Spontaneous or Elective: 0 Number of Living Children: 2 - Gestational Age Gestational Age by PILAR (wks/days): 30 Weeks and 3 Days Review of Systems - Review of Systems Constitutional: No problems Breast: No problems ENT: No problems Cardiovascular: No problems Respiratory: No problems Gastrointestinal: No problems Genitourinary: No problems Musculoskeletal: No problems Neurological: No problems Skin: No problems Vital Signs - Temperature Temperature: 97.7 F Temperature Source: Temporal Artery Scan - Pulse Right Brachial Pulse Rate: 113 Pulse Assessment Method: Automatic Cuff - Respirations Respiratory Rate: 16 Oxygen Delivery Method: Room Air O2 Sat by Pulse Oximetry: 97 - Blood Pressure Right Arm Blood Pressure: 134/91 Blood Pressure Mean: 105 Blood Pressure Source: Automatic Cuff Medical Screen Scoring - Uterine Contractions Resting: Soft to palpation - Assessment - Baby A Baseline FHR: 155 Heart Rate - NICHD Category: Category I (Normal) NST: Reactive Physician Notification - Physician Notified Physician Notified Date: 07/18/22 Physician Notified Time: 13:00 Physician: Dalia Gomes Order Received: Yes - Notification Comment Comment: cbc, bmp, and ua obtained, pepcid, reglan, and fluids iv given, pt feeling better Maternal Triage Index - Maternal Triage Index Presenting for scheduled procedure w/no complaint: No - Stat/Priority 1 Stat Priority 1: No - Urgent/Priority 2 Urgent Priority 2: No - Prompt/Priority 3 Prompt Priority 3: No - Non-Urgent/Priority 4 Non-Urgent Priority 4: Yes Criteria Met for Priority 4: pt presents to triage for n/v since yesterday morning, has not been able to keep anything down including the toast she tried eating this am for breakfast Disposition - Disposition OB Disposition: Triage, Discharge to home, Written follow up instructions reviewed Discharge Date: 07/18/22 Discharge Time: 16:15 I agree with the RN Medical Screening Exam: Yes Physician's MSE Comment: I have neither seen nor examined the patient Case reviewed; plan agreed upon as documented in EMR&OBIX.: Yes Diagnosis: RELATED CONDITIONS, UNSPECIFIED, THIRD TRIMESTER
== END 2022-07-18 16:15 | disposition home or self-care (01) ==
LOC: FBPOP 12:16
PROVIDERS: ATTEND Obstetrics & Gynecology
DX: O26.893 Other specified pregnancy related conditions, third trimester (principal); Z3A.30 30 weeks gestation of pregnancy; Z79.82 Long term (current) use of aspirin
CPT/HCPCS: 59025; 96361; 96374; 96375; 36415; 80048; 85025; 81001; G0463; J2765; 99214

== ENCOUNTER 2022-07-26 04:29 | Outpatient (CLI) | payer OTHER ==
[2022-07-26 05:11] LABS: Appearance,Urine Cloudy (Clear); Bacteria,Urine Rare /hpf; Bilirubin,Urine Negative (Negative); Blood,Urine Trace (Negative); Color,Urine Yellow; Glucose,Urine (UA) Negative (Negative); Hyaline Casts,Urine 3 /lpf (0-2); Ketones,Urine 4+ (Negative); Leukocyte Esterase,Urine Negative (Negative); Mucus,Urine Few /hpf; Nitrite,Urine Negative (Negative); PH, Urine 5.5 (5.0-8.0); Protein,Urine Trace (Negative); RBC,Urine 2 /hpf (0-5); Specific Gravity,Urine 1.022 (1.001-1.035); Squamous Epithelial Cell,Urine 1 /hpf (0-4); Urobilinogen,Urine <2.0 mg/dL (<2.0); WBC,Urine 3 /hpf (0-5)
[2022-07-26] MEDS ORDERED: ACETAMINOPHEN TAB 325 MG TAB PO STA (05:38)
[2022-07-26] MEDS ORDERED: ONDANSETRON ODT 4 MG TAB PO STA (06:17)
[2022-07-26 07:27] VITALS: BP 125/72; PULSE 100; RESP 16; TEMP 96.9
--- NOTE | 2022-07-26 13:15 | P.MSEPDOC ---
Presenting Problems - Arrival Data Date of Arrival on Unit: 07/26/22 Time of Arrival on Unit: 04:48 Mode of Transport: Ambulatory - Complaint OB-Reason for Admission/Chief Complaint: Other Comment: Patient arrives to triage with complaint of constant right lower quadrant pain. that occasionally radiates to her back, rated 5/10, began at 0100. Patient states that. she has been having nausea since pain began, 2 episodes of emesis. Medical History - Information : 3 Para: 0 Term: 0 : 0 Abortions: Spontaneous or Elective: 2 Number of Living Children: 0 - Gestational Age Gestational Age by PILAR (wks/days): 31 Weeks and 4 Days Review of Systems - Review of Systems Constitutional: No problems Breast: No problems ENT: No problems Cardiovascular: No problems Respiratory: No problems Gastrointestinal: No problems Genitourinary: No problems Musculoskeletal: No problems Neurological: No problems Skin: No problems Vital Signs - Temperature Temperature: 96.9 F Temperature Source: Oral - Pulse Right Brachial Pulse Rate: 100 Pulse Assessment Method: Automatic Cuff - Respirations Respiratory Rate: 16 Oxygen Delivery Method: Room Air O2 Sat by Pulse Oximetry: 98 - Blood Pressure Right Arm Blood Pressure: 125/72 Blood Pressure Mean: 89 Blood Pressure Source: Automatic Cuff Medical Screen Scoring - Assessment - Baby A Baseline FHR: 135 Heart Rate - NICHD Category: Category I (Normal) NST: Reactive Physician Notification - Physician Notified Physician Notified Date: 07/26/22 - Notification Comment Comment: [id number] Dr. Gomes called with report on patients complaint of RLQ pain radiating to back that began at 0100, rated 5/10 and emesis times 2 at home. Reactive NST and no. contractions noted. Vitals in normal range. U/A results reviewed. Orders received for tylenol at this time. Patient may be discharge home if pain subsides. 0614 Patient states pain remains the same and is nauseous. Zofran ODT 4mg ordered. Hot compresses applied. Urine sent to culture. 0680 Dr. Gomes updated on patients pain and nausea improving. Patient to be discharged home. Maternal Triage Index - Maternal Triage Index Presenting for scheduled procedure w/no complaint: No - Stat/Priority 1 Stat Priority 1: No - Urgent/Priority 2 Urgent Priority 2: No - Prompt/Priority 3 Prompt Priority 3: No - Non-Urgent/Priority 4 Non-Urgent Priority 4: Yes Criteria Met for Priority 4: Patient arrives to triage with complaint of constant right lower quadrant pain. that occasionally radiates to her back, rated 5/10, began at 0100. Patient states that. she has been having nausea since pain began, 2 episodes of emesis. Disposition - Disposition OB Disposition: Discharge to home Discharge Date: 07/26/22 Discharge Time: 06:55 I agree with the RN Medical Screening Exam: Yes Physician's MSE Comment: I have neither seen nor examined the patient Case reviewed; plan agreed upon as documented in EMR&OBIX.: Yes Diagnosis: MATERNAL CARE FOR PROBLEM, UNSPECIFIED * DO NOT USE *
== END 2022-07-26 06:55 ==
LOC: FBPOP 04:29
PROVIDERS: ATTEND Obstetrics & Gynecology
DX: O26.93 Pregnancy related conditions, unspecified, third trimester (principal); Z3A.31 31 weeks gestation of pregnancy; Z79.82 Long term (current) use of aspirin
CPT/HCPCS: 59025; 81001; 87086; G0463; 99213

== ENCOUNTER 2022-07-26 09:05 | Outpatient (CLI) | payer OTHER ==
[2022-07-26] MEDS ORDERED: LACTATED RINGERS 1,000 ML IV SCH ×2 (10:00)
[2022-07-26 10:22] LABS: Basophils % (A) 0 %; Eosinophils % (A) 0 %; HGB 13.4 gm/dL (11.4-16.0); Lymphocytes # (A) 0.8 k/uL (1.0-4.8); Lymphocytes % (A) 7 %; MCH 30.3 pg (25.0-35.0); MCHC 33.6 g/dL (31.0-37.0); MCV 90.2 fL (80.0-100.0); Mean Platelet Volume 9.3; Monocytes # (A) 0.3 k/uL (0-1.0); Monocytes % (A) 2 %; Neutrophils % (A) 90 %; Platelet Count 182 k/uL (150-450); RBC 4.43 m/uL (3.80-5.40); RDW 13.4 % (11.5-15.5); WBC 12.3 k/uL (3.8-10.6)
[2022-07-26 10:39] LABS: ALT 32 U/L (4-34); AST 33 U/L (14-36); African American GFR (CKD) >90 (>60 ml/min/1.73 sqM); Albumin 3.3 g/dL (3.5-5.0); Alkaline Phosphatase 91 U/L (38-126); Anion Gap 12 mmol/L; Blood Urea Nitrogen 10 mg/dL (7-17); Calcium 8.5 mg/dL (8.4-10.2); Carbon Dioxide 17 mmol/L (22-30); Chloride 105 mmol/L (98-107); Glucose 81 mg/dL (74-99); Non-African American GFR(CKD) >90 (>60 ml/min/1.73 sqM); Potassium 4.1 mmol/L (3.5-5.1); Sodium 134 mmol/L (137-145); Total Bilirubin 0.6 mg/dL (0.2-1.3); Total Protein 6.1 g/dL (6.3-8.2)
--- NOTE | 2022-07-26 10:46 | US ---
EXAMINATION TYPE: US abdomen APPY DATE OF EXAM: 07/26/2022 COMPARISON: NONE CLINICAL INDICATION: Female, 26 years old with history of RLQ pain; Patient is 31 weeks with RLQ pain that started this morning TECHNIQUE: Multiple sonographic images of the right lower quadrant were obtained with graded compress ion. FINDINGS: CASTING MOLDER NOTES: Scanned RLQ at area of appendix, enlarged UT and bowel gas limited views. Unable t o see appendix. No fluid collections or masses seen. IMPRESSION: Enlarged uterus and bowel gas limited visualization of the appendix. Unable to clearly identify the a ppendix.
[2022-07-26] MEDS ORDERED: CYCLOBENZAPRINE 5 MG TAB PO STA (10:50)
[2022-07-26] MEDS ORDERED: METOCLOPRAMIDE 5 MG/ML 2 ML VIAL IVP STA (10:51)
[2022-07-26 12:33] VITALS: BP 132/75; PULSE 90; RESP 16; TEMP 97.3
--- NOTE | 2022-08-29 12:58 | P.MSEPDOC ---
Presenting Problems - Arrival Data Date of Arrival on Unit: 07/26/22 Time of Arrival on Unit: 09:05 Mode of Transport: Ambulatory - Complaint OB-Reason for Admission/Chief Complaint: Acute Nausea/Vomiting, Pain Comment: RLQ pain rates 6 out of 0-10 Medical History - Information : 3 Para: 0 Term: 0 : 0 Abortions: Spontaneous or Elective: 2 Number of Living Children: 0 - Gestational Age Gestational Age by PILAR (wks/days): 31 Weeks and 4 Days - History Complications: GDM Review of Systems - Review of Systems Constitutional: No problems Breast: No problems ENT: No problems Cardiovascular: No problems Respiratory: No problems Gastrointestinal: No problems Genitourinary: No problems Musculoskeletal: No problems Neurological: No problems Skin: No problems Vital Signs - Temperature Temperature: 97.3 F Temperature Source: Temporal Artery Scan - Pulse Right Sitting Pulse Rate: 90 Pulse Assessment Method: Automatic Cuff - Respirations Respiratory Rate: 16 Oxygen Delivery Method: Room Air O2 Sat by Pulse Oximetry: 98 - Blood Pressure Right Arm Blood Pressure: 132/75 Blood Pressure Mean: 94 Blood Pressure Source: Automatic Cuff Medical Screen Scoring - Assessment - Baby A Baseline FHR: 135 Heart Rate - NICHD Category: Category I (Normal) NST: Reactive Physician Notification - Physician Notified Physician Notified Date: 07/26/22 Physician Notified Time: 12:10 Physician: Dalia Gomes Order Received: Yes (d/c home) Maternal Triage Index - Non-Urgent/Priority 4 Non-Urgent Priority 4: Yes Criteria Met for Priority 4: RLQ pain and nausea and vomiting. reactive nst, no conractions, labs wnl, pain and nausea relieved with meds Disposition - Disposition OB Disposition: Discharge to home Discharge Date: 07/26/22 Discharge Time: 12:21 I agree with the RN Medical Screening Exam: Yes Physician's MSE Comment: I have neither seen nor examined the patient Case reviewed; plan agreed upon as documented in EMR&OBIX.: Yes Diagnosis: RELATED CONDITIONS, UNSPECIFIED, THIRD TRIMESTER
== END 2022-07-26 12:21 | disposition home or self-care (01) ==
LOC: FBPOP 09:05
PROVIDERS: ATTEND Obstetrics & Gynecology
DX: O26.893 Other specified pregnancy related conditions, third trimester (principal); O21.9 Vomiting of pregnancy, unspecified; O24.419 Gestational diabetes mellitus in pregnancy, unspecified control; O34.593 Maternal care for other abnormalities of gravid uterus, third trimester; R10.31 Right lower quadrant pain; N85.2 Hypertrophy of uterus; Z3A.31 31 weeks gestation of pregnancy
CPT/HCPCS: 59025; 96361; 96374; 36415; 80053; 85025; 76705; G0463; J2765; 96375; 99214

== ENCOUNTER 2022-07-27 17:56 | Outpatient (CLI) | payer OTHER ==
[2022-07-27 18:19] LABS: Glucose,Whole Blood 80 mg/dL (70-110)
[2022-07-27] MEDS ORDERED: HYDROmorphone 0.5 MG/0.5 ML SYRINGE IVP STA (19:24)
[2022-07-27 19:31] LABS: Basophils % (A) 0 %; Eosinophils % (A) 0 %; HCT 40.4 % (34.0-46.0); HGB 13.7 gm/dL (11.4-16.0); Lymphocytes # (A) 1.1 k/uL (1.0-4.8); Lymphocytes % (A) 8 %; MCH 30.5 pg (25.0-35.0); MCV 89.5 fL (80.0-100.0); Mean Platelet Volume 8.8; Monocytes # (A) 0.7 k/uL (0-1.0); Monocytes % (A) 5 %; Neutrophils # (A) 11.7 k/uL (1.3-7.7); Neutrophils % (A) 85 %; Platelet Count 200 k/uL (150-450); RBC 4.51 m/uL (3.80-5.40); RDW 13.4 % (11.5-15.5); WBC 13.8 k/uL (3.8-10.6)
[2022-07-27 19:35] LABS: Appearance,Urine Cloudy (Clear); Bacteria,Urine Many /hpf; Bilirubin,Urine Negative (Negative); Blood,Urine Negative (Negative); Color,Urine Yellow; Glucose,Urine (UA) Negative (Negative); Ketones,Urine 4+ (Negative); Leukocyte Esterase,Urine Negative (Negative); Mucus,Urine Few /hpf; Nitrite,Urine Negative (Negative); Protein,Urine Trace (Negative); RBC,Urine 2 /hpf (0-5); Specific Gravity,Urine 1.014 (1.001-1.035); Squamous Epithelial Cell,Urine 1 /hpf (0-4); Urobilinogen,Urine <2.0 mg/dL (<2.0); WBC,Urine 5 /hpf (0-5)
--- NOTE | 2022-07-27 19:53 | P.HPOB ---
History of Present Illness H&P Date: 07/27/22 Chief Complaint: Lower abdominal pain This is a 26-year-old 3 para 0020 woman with an estimated due date of 09/23/2022 based on IVF and consistent with 9 week ultrasound. She presents at 31-5/7 weeks gestation with a 36 hour history of worsening right lower quadrant pain. She rates the pain a 10 out of 10 and is causing her nausea and vomiting with movement. She has not had an appetite for several days. She was initially seen on 07/26/2022 and evaluation at that time showed dehydration and a white blood cell count of 12.3 with a left shift. She was given IV fluid rehydration. Ultrasound of the right lower quadrant did not visualize the appendix. Her pa in did improve somewhat and she was discharged. She was reevaluation did in the outpatient setting earlier today with continued right lower quadrant pain. She was instructed to return to the hospital with any worsening pain. Her pain is continued unabated and is severe and she reports presents now. Currently she has a white blood cell count of 13.8 with a leftward shift. She has 4+ ketones in her urine. She is actively vomiting in triage. She reports last bowel movement 4 days ago and was normal. She denies any dysuria or hematuria. She denies any headaches, visual changes, shortness of breath or chest pain. She has felt good movement. She denies contractions, vaginal bleeding or leakage of fluids. The has otherwise been complicated by diet-controlled gestational diabetes. Obstetric history: She is a 3 para 0020 with a history of spontaneous miscarriages in 2019 and 2020. This was conceived received with reproductive technology, IVF. Laboratory data: Blood type O+, antibody screen negative, rubella immune, VDRL nonreactive, hepatitis B surface antigen negative, gonorrhea and clinically cultures negative, 3 hour glucose tolerance testing abnormal. Review of Systems Constitutional: Reports as per HPI Past Medical History Past Medical History: No Reported History Additional Past Medical History / Comment(s): Gestational diabetes History of Any Multi-Drug Resistant Organisms: None Reported Additional Past Surgical History / Comment(s): wisdom teeth removed with anesthesia Past Anesthesia/Blood Transfusion Reactions: No Reported Reaction Smoking Status: Never smoker - Past Family History Mother Family Medical History: No Reported History Medications and Allergies Home Medications Medication Instructions Recorded Confirmed Type Aspirin [Adult Low Dose Aspirin EC] 1 tablet PO DAILY 07/01/22 07/27/22 History Cetirizine HCl [Zyrtec] 1 tablet PO DAILY 07/01/22 07/27/22 History Vit No.179/Iron/Folic 1 each PO DAILY 07/01/22 07/27/22 History [ Tablet] Allergies Allergy/AdvReac Type Severity Reaction Status Date / Time No Known Allergies Allergy Verified 07/26/22 09:52 Exam Intake and Output 07/27/22 07/27/22 07/27/22 06:59 14:59 22:59 Other: Weight 89.358 kg This is a uncomfortable and diaphoretic appearing female who is visibly gravid. HEENT exam is unremarkable. Her heart is a regular rate and rhythm, mildly tachycardic. Her lungs are clear to auscultation bilaterally. The abdomen is gravid with a fundal height consistent with gestational age. There is no right upper quadrant pain. She has right lower quadrant rebound and guarding. She has mild right flank pain no left flank pain. Pelvic examination per RN revealed cervix closed, thick and no presenting part. heart tones are reassuring, category 1 for gestational age. No contractions on tocometer. Extremities show 1+ edema, 2+ deep tendon reflexes. Results Result Diagrams: 07/27/22 19:04 Abnormal Lab Results - Last 24 Hours (Table) 07/27/22 07/27/22 Range/Units 19:04 19:05 WBC 13.8 H (3.8-10.6) k/uL Neutrophils # 11.7 H (1.3-7.7) k/uL Urine Appearance Cloudy H (Clear) Urine Protein Trace H (Negative) Urine Ketones 4+ H (Negative) Urine Bacteria Many H (None) /hpf Urine Mucus Few H (None) /hpf Assessment and Plan (1) 31 to 32 weeks gestation of Current Visit: Yes Status: Acute Code(s): [id number] - SNOMED Code(s): 31 8408824 (2) RLQ abdominal pain Current Visit: Yes Status: Acute Code(s): R10.31 - RIGHT LOWER QUADRANT PAIN SNOMED Code(s): 747235034 (3) Abdominal pain with vomiting Current Visit: Yes Status: Acute Code(s): R10.9 - UNSPECIFIED ABDOMINAL PAIN; R11.10 - VOMITING, UNSPECIFIED SNOMED Code(s): 53784194 Plan: This is a 26-year-old 3 para 0020 woman at 31-5/7 weeks gestation with suspected acute appendicitis. She has right lower quadrant pain, elevated white blood cell count with a leftward shift, vomiting and anorexia. I believe she needs evaluation by general surgeon. Based on her gestational age and small risk of labor or distress with the appendicitis or surgical procedure have recommended transfer to a tertiary care facility with NICU and MFM capabilities. The case was discussed with the attending physician at [facility] who agrees to the transport. First of transport were reviewed with the patient and her and include worsening pain and progression of the appendicitis however I believe this risk is low and necessary. Consent is obtained for transfer.
[2022-07-28 01:08] VITALS: BP 140/87; PULSE 96; RESP 16; TEMP 98
== END 2022-07-27 22:00 ==
LOC: FBPOP 17:56
PROVIDERS: ATTEND Obstetrics & Gynecology
DX: O26.893 Other specified pregnancy related conditions, third trimester (principal); R10.31 Right lower quadrant pain; R11.10 Vomiting, unspecified; Z3A.32 32 weeks gestation of pregnancy; O24.429 Gestational diabetes mellitus in childbirth, unspecified control; Z37.9 Outcome of delivery, unspecified
CPT/HCPCS: 85025; 81001; J1170; 59025; 96375

== ENCOUNTER 2022-08-21 17:40 | Outpatient (CLI) | payer OTHER ==
[2022-08-21 18:21] LABS: Appearance,Urine Clear (Clear); Bilirubin,Urine Negative (Negative); Blood,Urine Negative (Negative); Color,Urine Light Yellow; Glucose,Urine (UA) Negative (Negative); Ketones,Urine Negative (Negative); Leukocyte Esterase,Urine Negative (Negative); Nitrite,Urine Negative (Negative); Protein,Urine Negative (Negative); Specific Gravity,Urine 1.003 (1.001-1.035); Urobilinogen,Urine <2.0 mg/dL (<2.0)
[2022-08-21 18:34] LABS: Creatinine,Urine Random 15.3 mg/dL; Protein/Creatinine Ratio,Urine 0.98
[2022-08-21 18:35] LABS: Basophils % (A) 0 %; Eosinophils # (A) 0.1 k/uL (0-0.7); Eosinophils % (A) 1 %; HCT 38.2 % (34.0-46.0); HGB 12.5 gm/dL (11.4-16.0); Lymphocytes # (A) 1.4 k/uL (1.0-4.8); Lymphocytes % (A) 14 %; MCHC 32.8 g/dL (31.0-37.0); MCV 88.5 fL (80.0-100.0); Mean Platelet Volume 10.5; Monocytes # (A) 0.5 k/uL (0-1.0); Monocytes % (A) 5 %; Neutrophils # (A) 7.4 k/uL (1.3-7.7); Neutrophils % (A) 77 %; Platelet Count 192 k/uL (150-450); RBC 4.32 m/uL (3.80-5.40); RDW 13.2 % (11.5-15.5); WBC 9.6 k/uL (3.8-10.6)
[2022-08-21 18:53] LABS: ALT 94 U/L (4-34); AST 53 U/L (14-36); African American GFR (CKD) >90 (>60 ml/min/1.73 sqM); Blood Urea Nitrogen 9 mg/dL (7-17); LDH 158 U/L (120-246); Non-African American GFR(CKD) >90 (>60 ml/min/1.73 sqM); Uric Acid 2.9 mg/dL (3.7-7.4)
[2022-08-21 19:07] VITALS: BP 147/96; PULSE 88; RESP 16; TEMP 97.5
--- NOTE | 2022-09-05 08:43 | P.MSEPDOC ---
Presenting Problems - Arrival Data Date of Arrival on Unit: 08/21/22 Time of Arrival on Unit: 17:40 Mode of Transport: Ambulatory - Complaint OB-Reason for Admission/Chief Complaint: Other Comment: pt checked bp at home and was elevated, pt also c/o headache for the last few hours, denies blurred vision/RUQ pain Medical History - Information : 3 Para: 0 Term: 0 : 0 Abortions: Spontaneous or Elective: 0 Number of Living Children: 0 - Gestational Age Gestational Age by PILAR (wks/days): 35 Weeks and 2 Days - History Complications: GDM, Other Comment: IVF, kidney stones, HTN Review of Systems - Review of Systems Constitutional: No problems Breast: No problems ENT: No problems Cardiovascular: No problems Respiratory: No problems Gastrointestinal: No problems Genitourinary: No problems Musculoskeletal: No problems Neurological: No problems Skin: No problems Vital Signs - Temperature Temperature: 97.5 F Temperature Source: Temporal Artery Scan - Pulse Right Brachial Pulse Rate: 88 Pulse Assessment Method: Automatic Cuff - Respirations Respiratory Rate: 16 Oxygen Delivery Method: Room Air - Blood Pressure Right Arm Blood Pressure: 147/96 Blood Pressure Mean: 113 Blood Pressure Source: Automatic Cuff Medical Screen Scoring - Assessment - Baby A Baseline FHR: 150 Heart Rate - NICHD Category: Category I (Normal) NST: Reactive Physician Notification - Physician Notified Physician Notified Date: 08/21/22 Physician Notified Time: 18:05 Physician: Sade Riggs New Order Received: Yes Maternal Triage Index - Urgent/Priority 2 Urgent Priority 2: Yes Provider Notified: Sade Riggs Provider Notified Time: 18:05 Criteria Met for Priority 2: order given for lab work, reviewed lab work and follow up bps, pt ok to dc home Disposition - Disposition OB Disposition: Discharge to home, Written follow up instructions reviewed Discharge Date: 08/21/22 Discharge Time: 19:01 I agree with the RN Medical Screening Exam: No Case reviewed; plan agreed upon as documented in EMR&OBIX.: No Comments: Inadequate documentation of patient's repeat blood pressures. Patient is to follow-up on with primary physician in the next 24-48 hours for repeat blood pressure check. Signs and symptoms of preeclampsia reviewed in detail per RN report. LFTs reported to me as normal in verbal report. Diagnosis: PIH
== END 2022-08-21 19:01 | disposition home or self-care (01) ==
LOC: FBPOP 17:40
PROVIDERS: ATTEND Obstetrics & Gynecology
DX: O13.3 Gestational [pregnancy-induced] hypertension without significant proteinuria, third trimester (principal); O26.833 Pregnancy related renal disease, third trimester; N20.0 Calculus of kidney; O09.813 Supervision of pregnancy resulting from assisted reproductive technology, third trimester; Z3A.35 35 weeks gestation of pregnancy
CPT/HCPCS: 59025; 82570; 84156; 82565; 83615; 84450; 84460; 84520; 84550; 85025; 81003; G0463; 99215

== ENCOUNTER 2022-08-29 10:14 | Outpatient (CLI) | payer OTHER ==
[2022-08-29 11:40] VITALS: BP 140/83; PULSE 91; RESP 16; TEMP 97.8
--- NOTE | 2022-08-29 13:02 | P.MSEPDOC ---
Presenting Problems - Arrival Data Date of Arrival on Unit: 08/29/22 Time of Arrival on Unit: 10:14 Mode of Transport: Ambulatory - Complaint OB-Reason for Admission/Chief Complaint: NST Medical History - Information : 3 Para: 0 Term: 0 : 0 Abortions: Spontaneous or Elective: 0 Number of Living Children: 0 - Gestational Age Gestational Age by PILAR (wks/days): 36 Weeks and 3 Days - History Complications: GDM Review of Systems - Review of Systems Constitutional: No problems Breast: No problems ENT: No problems Cardiovascular: No problems Respiratory: No problems Gastrointestinal: No problems Genitourinary: No problems Musculoskeletal: No problems Neurological: No problems Skin: No problems Vital Signs - Temperature Temperature: 97.8 F Temperature Source: Oral - Pulse Right Brachial Pulse Rate: 91 Pulse Assessment Method: Automatic Cuff - Respirations Respiratory Rate: 16 Oxygen Delivery Method: Room Air O2 Sat by Pulse Oximetry: 97 - Blood Pressure Right Arm Blood Pressure: 140/83 Blood Pressure Mean: 102 Blood Pressure Source: Automatic Cuff Physician Notification - Physician Notified Physician Notified Date: 08/29/22 Physician Notified Time: 11:17 Physician: Dalia Gomes New Order Received: Yes - Notification Comment Comment: Dr. Gomes given report on pt. Pt sent. from office per Dr. Soumya RUTLEDGET. Cat 1 FHTs. . movement noted per pt and RN palpation. BPs readback. Orders recieved to d/c pt to home. Maternal Triage Index - Scheduled/Requesting Priority 5 Scheduled/Requesting Priority 5: Yes Criteria Met for Priority 5: Pt sent from office with written orders for NST and BP pressure monitoring. Disposition - Disposition OB Disposition: Discharge to home Discharge Date: 08/29/22 Discharge Time: 11:20 I agree with the RN Medical Screening Exam: Yes Physician's MSE Comment: I have neither seen nor examined the patient Case reviewed; plan agreed upon as documented in EMR&OBIX.: Yes Diagnosis: RELATED CONDITIONS, UNSPECIFIED, THIRD TRIMESTER
== END 2022-08-29 11:20 | disposition home or self-care (01) ==
LOC: FBPOP 10:14
PROVIDERS: ATTEND Obstetrics & Gynecology
DX: O26.93 Pregnancy related conditions, unspecified, third trimester (principal); O24.419 Gestational diabetes mellitus in pregnancy, unspecified control; Z3A.36 36 weeks gestation of pregnancy
CPT/HCPCS: 59025

== ENCOUNTER 2022-09-01 11:52 | Inpatient (IN) | payer OTHER ==
[2022-09-01] MEDS ORDERED: OXYTOCIN 30 UNITS/500 ML NS 30 UNIT in SALINE 1 500ML.BAG IV SCH (17:15)
[2022-09-01] MEDS: LACTATED RINGERS 1,000 ML IV SCH (17:30)
[2022-09-01 17:41] LABS: Basophils % (A) 0 %; Eosinophils # (A) 0.1 k/uL (0-0.7); Eosinophils % (A) 1 %; HCT 38.4 % (34.0-46.0); HGB 12.9 gm/dL (11.4-16.0); Lymphocytes # (A) 1.7 k/uL (1.0-4.8); Lymphocytes % (A) 15 %; MCH 29.5 pg (25.0-35.0); MCHC 33.7 g/dL (31.0-37.0); MCV 87.7 fL (80.0-100.0); Mean Platelet Volume 10.8; Monocytes # (A) 0.6 k/uL (0-1.0); Monocytes % (A) 6 %; Neutrophils # (A) 8.5 k/uL (1.3-7.7); Neutrophils % (A) 77 %; Platelet Count 185 k/uL (150-450); RBC 4.38 m/uL (3.80-5.40); RDW 12.8 % (11.5-15.5); WBC 11.1 k/uL (3.8-10.6)
[2022-09-01 18:17] LABS: Glucose,Whole Blood 87 mg/dL (70-110)
[2022-09-01] MEDS ORDERED: NALBUPHINE 10 MG/ML (10 ML MDV) IV PRN (18:30)
--- NOTE | 2022-09-01 18:44 | P.HPOB ---
History of Present Illness H&P Date: 09/01/22 Chief Complaint: mIOL for preE w/o SF and GDMA1 This is a 26 year old at 36 weeks and 6 days (with EDC of 09/23/2022 by LMP consistent with 9 week US) with an IVF who presents for medical induction of labor for pre-eclampsia without severe features and diet-controlled gestational diabetes. Her has also been complicated by nephrolithiasis and a subsequent pyelonephritis. She was assessed by the urology team who started Flomax to help the stone to pass and a 14-day course of antibiotics. She is still on antibiotic suppression daily. Growth ultrasound at 32 weeks measured the fetus to be in the 48%ile for gestational age. Blood sugars have been well- controlled this with diet alone with the vast majority of blood sugar readings falling within the goal range. The patient had normal pre-eclampsia labs on 08/21/2022 that were remarkable for a urine protein to creatinine ratio of 0.9. Maternal serologies: blood type O positive, antibody negative, rubella immune, VDRL non-reactive, HBsAg negative, HIV negative, GBS STILL PENDING. Past Medical History Past Medical History: No Reported History Additional Past Medical History / Comment(s): Gestational diabetes, kidney stones History of Any Multi-Drug Resistant Organisms: None Reported Additional Past Surgical History / Comment(s): wisdom teeth removed with anesthesia, ACL surgery on L knee Past Anesthesia/Blood Transfusion Reactions: No Reported Reaction Past Psychological History: No Psychological Hx Reported Smoking Status: Never smoker Past Alcohol Use History: None Reported Past Drug Use History: None Reported - Past Family History Mother Family Medical History: No Reported History Medications and Allergies Home Medications Medication Instructions Recorded Confirmed Type Aspirin [Adult Low Dose Aspirin EC] 1 tablet PO DAILY 07/01/22 09/01/22 History Cetirizine HCl [Zyrtec] 1 tablet PO DAILY 07/01/22 09/01/22 History Vit No.179/Iron/Folic 1 each PO DAILY 07/01/22 09/01/22 History [ Tablet] Allergies Allergy/AdvReac Type Severity Reaction Status Date / Time No Known Allergies Allergy Verified 09/01/22 17:07 Exam Vital Signs Temp Pulse Resp BP Pulse Ox 09/01/22 17:34 97.5 F L 97 16 127/89 97 Intake and Output 09/01/22 09/01/22 09/01/22 06:59 14:59 22:59 Other: Weight 86.636 kg This physical exam is performed. This is a healthy-appearing gravid woman in no apparent distress. Abdomen is gravid and non-tender. Cervical exam is closed long and high. Cook's catheter is placed with 60 mL in each balloon. Extremities are non-edematous and non-tender. heart tones are reactive and reassuring on NST. Results Result Diagrams: 09/01/22 17:21 Abnormal Lab Results - Last 24 Hours (Table) 09/01/22 Range/Units 17:21 WBC 11.1 H (3.8-10.6) k/uL Neutrophils # 8.5 H (1.3-7.7) k/uL Assessment and Plan Assessment: 26 year old at 36 weeks and 6 days with IVF presenting for medical induction of labor for pre-eclampsia without severe features and diet- controlled gestational diabetes Plan: Admit, check POC glucose, NPO, mIVF, IV nubain prn, close monitoring of patient, continuous monitoring of fetus. Time with Patient: Less than 30
[2022-09-02] MEDS: LACTATED RINGERS 1,000 ML IV SCH (00:50)
[2022-09-02] MEDS ORDERED: SODIUM CHLORIDE 0.9% 100 ML BAG ONE (03:28)
[2022-09-02] MEDS ORDERED: fentaNYL (PF) 50 MCG/ML 5 ML AMP ONE (03:28)
[2022-09-02] MEDS ORDERED: ROPIVACAINE 5 MG/ML 20 ML AMPULE ONE (03:28)
[2022-09-02] MEDS ORDERED: ACETAMINOPHEN TAB 325 MG TAB PO PRN (10:54)
[2022-09-02] MEDS ORDERED: ZOLPIDEM 5 MG TAB PO PRN (10:54)
[2022-09-02] MEDS ORDERED: SIMETHICONE 80 MG CHEWABLE PO PRN (10:54)
[2022-09-02] MEDS ORDERED: diphenhydrAMINE 25 MG CAP PO PRN (10:54)
[2022-09-02] MEDS ORDERED: diphenhydrAMINE 50 MG/ML 1 ML VIAL IVP PRN ×2 (10:54)
[2022-09-02] MEDS ORDERED: IBUPROFEN 600 MG TAB PO PRN (10:54)
[2022-09-02] MEDS ORDERED: BENZOCAINE/MENTHOL SPRAY 1 GM/SPRAY AEROSOL TOPICAL PRN (10:54)
[2022-09-02] MEDS ORDERED: LANOLIN CREAM 5 GM TUBE TOPICAL PRN (10:54)
[2022-09-02] MEDS ORDERED: diphenhydrAMINE 50 MG CAP PO PRN (10:54)
[2022-09-02] MEDS ORDERED: HYDROCORTISONE 2.5% RECTAL CREAM 30 GM TUBE RECTAL PRN (10:54)
--- NOTE | 2022-09-02 10:58 | P.PROBDLV ---
Vaginal Delivery Note - . Vaginal Delivery Note: DATE OF SERVICE: 09/02/2022 PROCEDURE: Normal Vaginal Delivery ATTENDING: Dr. Dalia Gomes MD ESTIMATED BLOOD LOSS: 300 mL FINDINGS: VFI, Apgars 9/9, Weight 5#13oz PROCEDURE: Patient was a 26 y/o at 37 weeks gestation who presented to labor and delivery in labor for medical induction of labor for gestational hypertension and diet-controlled gestational diabetes. Cooks catheter was placed and oxytocin was started. Patient progressed quickly and the cooks catheter fell out. The patient had spontaneous rupture of membranes with clear fluid noted. She received epidural anesthesia per her request. She soon reached complete dilation. She pushed effectively. Head delivered without difficulty followed by shoulders and body over intact perineum. placed on maternal abdomen and bulb suctioned. Cord was clamped and cut after a 30 second delay. Placenta delivered whole with gentle cord traction. Oxytocin was started to facilitate uterine tone. Uterine fundus firm and bleeding minimal upon fundal massage. Perineal inspection revealed a second degree laceration repaired with 2-0 Vicryl in the usual fashion. Patient stable .
[2022-09-02] MEDS ORDERED: OXYTOCIN 30 UNITS/500 ML NS 30 UNIT in SALINE 1 500ML.BAG IV SCH (11:00)
[2022-09-02] MEDS ORDERED: MEASLES-MUMPS-RUBELLA VACC/PF 12,500 UNIT/0.5 ML VIAL SQ ONE (13:50)
[2022-09-02 18:31] VITALS: RESP 16
[2022-09-02] MEDS: SENNOSIDES-DOCUSATE SODIUM 1 EACH TAB PO SCH (19:27)
[2022-09-03 06:18] LABS: Basophils % (A) 0 %; Eosinophils # (A) 0.1 k/uL (0-0.7); Eosinophils % (A) 1 %; HCT 33.4 % (34.0-46.0); HGB 11.1 gm/dL (11.4-16.0); Lymphocytes # (A) 1.8 k/uL (1.0-4.8); Lymphocytes % (A) 16 %; MCH 28.9 pg (25.0-35.0); MCHC 33.4 g/dL (31.0-37.0); MCV 86.5 fL (80.0-100.0); Mean Platelet Volume 11.7; Monocytes # (A) 0.6 k/uL (0-1.0); Monocytes % (A) 5 %; Neutrophils # (A) 8.6 k/uL (1.3-7.7); Neutrophils % (A) 76 %; Platelet Count 145 k/uL (150-450); RBC 3.86 m/uL (3.80-5.40); RDW 13.1 % (11.5-15.5); WBC 11.3 k/uL (3.8-10.6)
[2022-09-03 08:26] VITALS: BP 134/82; PULSE 72; TEMP 98.4
--- NOTE | 2022-09-03 11:24 | P.DS ---
Providers Date of admission: 09/01/22 17:01 Expected date of discharge: 09/03/22 Attending physician: Dalia Gomes MD Primary care physician: Stated None - Discharge Diagnosis(es) (1) 37 weeks gestation of Current Visit: Yes Status: Acute (2) Gestational diabetes mellitus Current Visit: Yes Status: Acute (3) Gestational hypertension Current Visit: Yes Status: Acute (4) Normal vaginal delivery Current Visit: Yes Status: Acute (5) Second degree laceration of perineum, delivered, current hospitalization Current Visit: Yes Status: Acute Hospital Course: 26-year-old 1 now para 1 that presented at 37 weeks of gestation for induction of labor secondary to gestational hypertension and diet-controlled gestational diabetes. Patient had a Cook catheter placed and oxytocin was begun. Patient progressed quickly and the catheter fell out. Patient spent ta yulia rupture of membranes with clear fluid. Patient requested epidural placement. Patient was noted to be completely dilated and had a normal spontaneous vaginal delivery of a viable female weight of 5 lbs. 13 oz. Patient did sustain a second-degree laceration which was repaired with 2-0 Vicryl in the usual fashion. Patient's course has been uneventful. On this day #1 she is seen bleeding and voiding without difficulty. She is tolerating regular diet without nausea or vomiting. She states her pain is well-controlled. She would like discharge home. Patient Condition at Discharge: Good Plan - Discharge Summary New Discharge Prescriptions: No Action Vit No.179/Iron/Folic [ Tablet] 1 each PO DAILY Cetirizine HCl [Zyrtec] 1 tablet PO DAILY Aspirin [Adult Low Dose Aspirin EC] 1 tablet PO DAILY Discharge Medication List Aspirin [Adult Low Dose Aspirin EC] 1 tablet PO DAILY 07/01/22 [History] Cetirizine HCl [Zyrtec] 1 tablet PO DAILY 07/01/22 [History] Vit No.179/Iron/Folic [ Tablet] 1 each PO DAILY 07/01/22 [History] Follow up Appointment(s)/Referral(s): Dalia Gomes MD [STAFF PHYSICIAN] - 6 Weeks Patient Instructions/Handouts: Vaginal Delivery (GEN), Vaginal Delivery (DC) Activity/Diet/Wound Care/Special Instructions: No tub baths or intercourse until 6 weeks . Patient has a routine visit scheduled at 6 weeks. She had any concerns prior to some point and she is urged to call the office. Discharge Disposition: HOME SELF-CARE
[2022-09-03] MEDS: SENNOSIDES-DOCUSATE SODIUM 1 EACH TAB PO SCH (11:57)
== END 2022-09-03 11:50 | disposition home or self-care (01) | DRG 560 ==
LOC: 4FBP 17:01
PROVIDERS: ADMIT Obstetrics & Gynecology; ATTEND Obstetrics & Gynecology
PROC: 10E0XZZ Delivery of Products of Conception, External Approach (ICD-10-PCS; principal; 2022-09-02)
PROC: 0U7C7ZZ Dilation of Cervix, Via Natural or Artificial Opening (ICD-10-PCS; principal; 2022-09-02)
PROC: 0KQM0ZZ Repair Perineum Muscle, Open Approach (ICD-10-PCS; principal; 2022-09-02)
PROC: 3E033VJ Introduction of Other Hormone into Peripheral Vein, Percutaneous Approach (ICD-10-PCS; principal; 2022-09-02)
PROC: 3E0134Z Introduction of Serum, Toxoid and Vaccine into Subcutaneous Tissue, Percutaneous Approach (ICD-10-PCS; 2022-09-02)
DX: O14.04 Mild to moderate pre-eclampsia, complicating childbirth (principal); Z37.0 Single live birth; O98.82 Other maternal infectious and parasitic diseases complicating childbirth; O24.420 Gestational diabetes mellitus in childbirth, diet controlled; N10 Acute pyelonephritis; Z3A.37 37 weeks gestation of pregnancy; O99.284 Endocrine, nutritional and metabolic diseases complicating childbirth; E28.2 Polycystic ovarian syndrome; O70.1 Second degree perineal laceration during delivery; N20.0 Calculus of kidney; Z79.899 Other long term (current) drug therapy; Z79.2 Long term (current) use of antibiotics; Z79.82 Long term (current) use of aspirin; Z23 Encounter for immunization
CPT/HCPCS: 85025; 86850; 86900; 86901; 90471; 90707

== ENCOUNTER 2022-10-09 21:32 | Emergency (ER) | payer OTHER ==
[2022-10-09] MEDS ORDERED: SODIUM CHLORIDE 0.9% 1,000 ML IV STA (22:13)
[2022-10-09] MEDS ORDERED: ONDANSETRON 4 MG/2 ML VIAL IVP STA (22:13)
[2022-10-09] MEDS ORDERED: MORPHINE SULFATE 4 MG/ML SYRINGE IVP STA (22:15)
[2022-10-09] MEDS ORDERED: KETOROLAC 15 MG/ML 1 ML VIAL IVP STA (22:35)
[2022-10-09 22:57] LABS: ALT 66 U/L (4-34); AST 74 U/L (14-36); African American GFR (CKD) >90 (>60 ml/min/1.73 sqM); Albumin 4.4 g/dL (3.5-5.0); Alkaline Phosphatase 149 U/L (38-126); Amylase 65 U/L (30-110); Anion Gap 8 mmol/L; Blood Urea Nitrogen 10 mg/dL (7-17); Calcium 9.8 mg/dL (8.4-10.2); Carbon Dioxide 28 mmol/L (22-30); Chloride 103 mmol/L (98-107); Glucose 92 mg/dL (74-99); Lipase 209 U/L (23-300); Non-African American GFR(CKD) >90 (>60 ml/min/1.73 sqM); Sodium 139 mmol/L (137-145); Total Bilirubin 0.8 mg/dL (0.2-1.3); Total Protein 7.1 g/dL (6.3-8.2)
[2022-10-09 22:59] LABS: Partial Thromboplastin Time 23.8 sec (22.0-30.0); Prothrombin Time 10.5 sec (9.0-12.0)
[2022-10-09 23:01] LABS: Basophils # (A) 0.1 k/uL (0-0.2); Basophils % (A) 1 %; Eosinophils # (A) 0.1 k/uL (0-0.7); Eosinophils % (A) 2 %; HCT 40.3 % (34.0-46.0); HGB 13.7 gm/dL (11.4-16.0); Lymphocytes # (A) 1.3 k/uL (1.0-4.8); Lymphocytes % (A) 17 %; MCH 29.1 pg (25.0-35.0); MCV 85.7 fL (80.0-100.0); Mean Platelet Volume 8.5; Monocytes # (A) 0.5 k/uL (0-1.0); Monocytes % (A) 6 %; Neutrophils # (A) 5.6 k/uL (1.3-7.7); Neutrophils % (A) 74 %; Platelet Count 207 k/uL (150-450); RDW 12.4 % (11.5-15.5); WBC 7.6 k/uL (3.8-10.6)
[2022-10-09 23:34] LABS: Appearance,Urine Slightly Cloudy (Clear); Bilirubin,Urine Negative (Negative); Color,Urine Yellow; Glucose,Urine (UA) Negative (Negative); Ketones,Urine Negative (Negative); PH, Urine 6.5 (5.0-8.0); Protein,Urine Negative (Negative); Specific Gravity,Urine 1.015 (1.001-1.035)
[2022-10-09 23:35] LABS: Blood,Urine Moderate (Negative); Leukocyte Esterase,Urine Large (Negative); Nitrite,Urine Negative (Negative); Urobilinogen,Urine <2.0 mg/dL (<2.0)
--- NOTE | 2022-10-09 23:45 | US ---
EXAM: US Abdomen Complete CLINICAL HISTORY: ITS.REASON US Reason: RUQ/epigastric pain TECHNIQUE: Real-time ultrasound of the abdomen with image documentation. COMPARISON: No relevant prior studies available. FINDINGS: Liver: Unremarkable. No mass. No intrahepatic bile duct dilation. Gallbladder: Small layering gallstones with moderate gallbladder distention. No gallbladder wall thickening or pericholecystic fluid. Common bile duct: Common bile duct measures 6.8 mm. No stones. No dilation. Pancreas: Unremarkable as visualized. Kidneys: Right kidney measures 11.8 cm. No stones. No solid mass. No hydronephrosis. Spleen: Unremarkable. No splenomegaly. Aorta: Unremarkable. No abdominal aortic aneurysm. Inferior vena cava: Unremarkable. IMPRESSION: Small layering gallstones with moderate gallbladder distention. No gallbladder wall thickening or pericholecystic fluid. Mild extrahepatic biliary dilatation.
[2022-10-09 23:49] LABS: RBC,Urine 4 /hpf (0-5); WBC,Urine 39 /hpf (0-5)
[2022-10-09 23:50] LABS: Bacteria,Urine Moderate /hpf; Squamous Epithelial Cell,Urine 8 /hpf (0-4)
[2022-10-10] LABS: Uric Acid 4.2 mg/dL (3.7-7.4)
--- NOTE | 2022-10-10 01:39 | ED ---
Abdominal Pain HPI - General Chief Complaint: Abdominal Pain Stated Complaint: Abdominal Pain Time Seen by Provider: 10/09/22 22:05 Source: patient Mode of arrival: ambulatory Limitations: no limitations - History of Present Illness Initial Comments: 27-year-old female presenting with chief complaint of abdominal pain. Pain is located primarily in the epigastric region. Has been ongoing for the last 2 days. States that it feels like a sharp stabbing pain is worse after eating. She admits to nausea and vomiting. She is 5 weeks post after a vaginal . No vaginal bleeding, dysuria, hematuria, fever, chills. No chest pain, difficulty breathing, cough, congestion, sore throat. - Related Data Home Medications Medication Instructions Recorded Confirmed Aspirin [Adult Low Dose Aspirin EC] 1 tablet PO DAILY 07/01/22 09/01/22 Cetirizine HCl [Zyrtec] 1 tablet PO DAILY 07/01/22 09/01/22 Vit No.179/Iron/Folic 1 each PO DAILY 07/01/22 09/01/22 [ Tablet] Previous Rx's Medication Instructions Recorded Cephalexin [Keflex] 500 mg PO Q12HR 5 Days #10 cap 10/10/22 Ondansetron Odt [Zofran Odt] 4 mg PO Q8HR PRN #20 tab 10/10/22 Allergies Allergy/AdvReac Type Severity Reaction Status Date / Time No Known Allergies Allergy Verified 10/09/22 21:51 Review of Systems ROS Statement: Those systems with pertinent positive or pertinent negative responses have been documented in the HPI. ROS Other: All systems not noted in ROS Statement are negative. Past Medical History Past Medical History: No Reported History Additional Past Medical History / Comment(s): Gestational diabetes, kidney stones History of Any Multi-Drug Resistant Organisms: None Reported Additional Past Surgical History / Comment(s): wisdom teeth removed with anesthesia, ACL surgery on L knee Past Anesthesia/Blood Transfusion Reactions: No Reported Reaction Past Psychological History: No Psychological Hx Reported Smoking Status: Never smoker Past Alcohol Use History: None Reported Past Drug Use History: None Reported - Past Family History Mother Family Medical History: No Reported History General Exam Limitations: no limitations General appearance: alert, in no apparent distress Head exam: Present: atraumatic, normocephalic, normal inspection Eye exam: Present: normal appearance, EOMI. Absent: scleral icterus, periorbital swelling Neck exam: Present: normal inspection, full ROM Respiratory exam: Present: normal lung sounds bilaterally. Absent: respiratory distress, wheezes, rales, rhonchi, stridor Cardiovascular Exam: Present: regular rate, normal rhythm, normal heart sounds. Absent: systolic murmur, diastolic murmur, rubs, gallop, clicks GI/Abdominal exam: Present: soft, tenderness. Absent: distended, guarding, rebound, rigid Neurological exam: Present: alert, oriented X3, CN II-XII intact Psychiatric exam: Present: normal affect, normal mood Skin exam: Present: warm, dry, intact, normal color. Absent: rash Course Vital Signs 10/09/22 10/09/22 10/10/22 21:52 22:56 01:47 Temperature 99.1 F 98 F Pulse Rate 90 62 52 L Respiratory 18 18 12 Rate Blood Pressure 151/119 131/91 116/76 O2 Sat by Pulse 99 97 Oximetry Medical Decision Making - Medical Decision Making Was pt. sent in by a medical professional or institution (, PA, MANUFACTURE SPECIALIST, urgent care, hospital, or [facility]...) When possible be specific @ -No Did you speak to anyone other than the patient for history (EMS, parent, family, police, friend...)? What history was obtained from this source @ -No Did you review nursing and triage notes (agree or disagree)? Why? @ -I reviewed and agree with nursing and triage notes Were old charts reviewed (outside hosp., previous admission, EMS record, old EKG, old radiological studies, urgent care reports/EKG's, [facility] records)? Report findings @ -No old charts were reviewed Differential Diagnosis (chest pain, altered mental status, abdominal pain women, abdominal pain men, vaginal bleeding, weakness, fever, dyspnea, syncope, headache, dizziness, GI bleed, back pain, seizure, CVA, palpatations, mental health, musculoskeletal)? @ -MDM Differential Abdominal Pain Women: Appendicitis, Cholecystitis, diverticulosis, ischemic bowel, pancreatitis, hepatitis, UTI, gastroenteritis, AAA, incarcerated hernia, bowel obstruction, constipation, inflammatory bowel, hepatitis, peptic ulcer disease, splenic infarction, perforated viscus, vulvitis, ovarian torsion, PID, kidney stone, placenta abruption... This is not meant to be an all-inclusive list EKG interpreted by me (3pts min.). @ -As above X-rays interpreted by me (1pt min.). @ -None done CT interpreted by me (1pt min.). @ -None done U/S interpreted by me (1pt. min.). @ -US Shows Small Layering Gallstones with Moderate Gallbladder Distention. No Gallbladder Wall Thickening or Pericholecystic Fluid. What testing was considered but not performed or refused? (CT, X-rays, U/S, labs)? Why? @ -None What meds were considered but not given or refused? Why? @ -None Did you discuss the management of the patient with other professionals (professionals i.e. Dr., PA, MANUFACTURE SPECIALIST, lab, RT, psych nurse, transition social worker, vocational counselor, teacher, plain clothes police officer, case monitor)? Give summary @ -No Was smoking cessation discussed for >3mins.? @ -No Was critical care preformed (if so, how long)? @ -No Were there social determinants of health that impacted care today? How? (Homelessness, low income, unemployed, alcoholism, drug addiction, transportation, low edu. Level, literacy, decrease access to med. care, long-term, rehab)? @ -No Was there de-escalation of care discussed even if they declined (Discuss DNR or withdrawal of care, Hospice)? DNR status @ -No What co-morbidities impacted this encounter? (DM, HTN, Smoking, COPD, CAD, Cancer, CVA, ARF, Chemo, Hep., AIDS, mental health diagnosis, sleep apnea, morbid obesity)? @ -None Was patient admitted / discharged? Hospital course, mention meds given and route, prescriptions, significant lab abnormalities, going to OR and other pertinent info. @ -27-year-old female presenting with chief complaint of epigastric pain and nausea and vomiting that is made worse by eating. On physical examination there is right upper quadrant tenderness. Lab work shows no leukocytosis or anemia. Slightly elevated AST, ALT, and alkaline phosphatase. Urine shows 39 wbc's and 8 squamous cells, we'll treat with Keflex. Ultrasound shows gallstones with no gallbladder wall thickening or pericholecystic fluid. On reassessment patient is asymptomatic and feels well. She will be discharged home and instructed to follow-up with surgery outpatient. Report back to ER with any new or worsening symptoms. Follow-up with PCP. Report back to ER with any new or worsening symptoms. Discussed return parameters and answered all questions. Patient conveyed verbal understanding and agreed to the plan. I discussed this case in detail with my attending Dr. Jimenez Undiagnosed new problem with uncertain prognosis? @ -No Drug Therapy requiring intensive monitoring for toxicity (Heparin, Nitro, Insulin, Cardizem)? @ -No Were any procedures done? @ -No Diagnosis/symptom? @ -Biliary colic, UTI Acute, or Chronic, or Acute on Chronic? @ -Acute Uncomplicated (without systemic symptoms) or Complicated (systemic symptoms)? @ -Uncomplicated Side effects of treatment? @ -No Exacerbation, Progression, or Severe Exacerbation? @ -No Poses a threat to life or bodily function? How? (Chest pain, [place], [place], pneumonia, PE, COPD, DKA, ARF, appy, cholecystitis, CVA, Diverticulitis, Homicidal, Suicidal, threat to staff... and all critical care pts) @ -No - Lab Data Result diagrams: 10/09/22 22:25 10/09/22 22:25 Lab Results 10/09/22 10/09/22 10/09/22 Range/Units 22:25 22:25 22:25 WBC 7.6 (3.8-10.6) k/uL RBC 4.70 (3.80-5.40) m/uL Hgb 13.7 (11.4-16.0) gm/dL Hct 40.3 (34.0-46.0) % MCV 85.7 (80.0-100.0) fL MCH 29.1 (25.0-35.0) pg MCHC 34.0 (31.0-37.0) g/dL RDW 12.4 (11.5-15.5) % Plt Count 207 (150-450) k/uL MPV 8.5 Neutrophils % 74 % Lymphocytes % 17 % Monocytes % 6 % Eosinophils % 2 % Basophils % 1 % Neutrophils # 5.6 (1.3-7.7) k/uL Lymphocytes # 1.3 (1.0-4.8) k/uL Monocytes # 0.5 (0-1.0) k/uL Eosinophils # 0.1 (0-0.7) k/uL Basophils # 0.1 (0-0.2) k/uL PT 10.5 (9.0-12.0) sec INR 1.0 (<1.2) APTT 23.8 (22.0-30.0) sec Sodium 139 (137-145) mmol/L Potassium 4.0 (3.5-5.1) mmol/L Chloride 103 (98-107) mmol/L Carbon Dioxide 28 (22-30) mmol/L Anion Gap 8 mmol/L BUN 10 (7-17) mg/dL Creatinine 0.76 (0.52-1.04) mg/dL Est GFR (CKD-EPI)AfAm >90 (>60 ml/min/1.73 sqM) Est GFR (CKD-EPI)NonAf >90 (>60 ml/min/1.73 sqM) Glucose 92 (74-99) mg/dL Plasma Lactic Acid Syed (0.7-2.0) mmol/L Uric Acid (3.7-7.4) mg/dL Calcium 9.8 (8.4-10.2) mg/dL Magnesium (1.6-2.3) mg/dL Total Bilirubin 0.8 (0.2-1.3) mg/dL AST 74 H (14-36) U/L ALT 66 H (4-34) U/L Alkaline Phosphatase 149 H (38-126) U/L Lactate Dehydrogenase (120-246) U/L Total Protein 7.1 (6.3-8.2) g/dL Albumin 4.4 (3.5-5.0) g/dL Amylase 65 (30-110) U/L Lipase 209 (23-300) U/L Urine Color Urine Appearance (Clear) Urine pH (5.0-8.0) Ur Specific Dougherty (1.001-1.035) Urine Protein (Negative) Urine Glucose (UA) (Negative) Urine Ketones (Negative) Urine Blood (Negative) Urine Nitrite (Negative) Urine Bilirubin (Negative) Urine Urobilinogen (<2.0) mg/dL Ur Leukocyte Esterase (Negative) Urine RBC (0-5) /hpf Urine WBC (0-5) /hpf Ur Squamous Epith Cells (0-4) /hpf Urine Bacteria (None) /hpf Urine Mucus (None) /hpf 07/30/23 07/30/23 07/30/23 Range/Units 22:25 22:25 23:09 WBC (3.8-10.6) k/uL RBC (3.80-5.40) m/uL Hgb (11.4-16.0) gm/dL Hct (34.0-46.0) % MCV (80.0-100.0) fL MCH (25.0-35.0) pg MCHC (31.0-37.0) g/dL RDW (11.5-15.5) % Plt Count (150-450) k/uL MPV Neutrophils % % Lymphocytes % % Monocytes % % Eosinophils % % Basophils % % Neutrophils # (1.3-7.7) k/uL Lymphocytes # (1.0-4.8) k/uL Monocytes # (0-1.0) k/uL Eosinophils # (0-0.7) k/uL Basophils # (0-0.2) k/uL PT (9.0-12.0) sec INR (<1.2) APTT (22.0-30.0) sec Sodium (137-145) mmol/L Potassium (3.5-5.1) mmol/L Chloride (98-107) mmol/L Carbon Dioxide (22-30) mmol/L Anion Gap mmol/L BUN (7-17) mg/dL Creatinine (0.52-1.04) mg/dL Est GFR (CKD-EPI)AfAm (>60 ml/min/1.73 sqM) Est GFR (CKD-EPI)NonAf (>60 ml/min/1.73 sqM) Glucose (74-99) mg/dL Plasma Lactic Acid Syed 0.7 (0.7-2.0) mmol/L Uric Acid 4.2 (3.7-7.4) mg/dL Calcium (8.4-10.2) mg/dL Magnesium 2.0 (1.6-2.3) mg/dL Total Bilirubin (0.2-1.3) mg/dL AST (14-36) U/L ALT (4-34) U/L Alkaline Phosphatase (38-126) U/L Lactate Dehydrogenase 205 (120-246) U/L Total Protein (6.3-8.2) g/dL Albumin (3.5-5.0) g/dL Amylase (30-110) U/L Lipase (23-300) U/L Urine Color Yellow Urine Appearance Slightly Cloudy H (Clear) Urine pH 6.5 (5.0-8.0) Ur Specific Dougherty 1.015 (1.001-1.035) Urine Protein Negative (Negative) Urine Glucose (UA) Negative (Negative) Urine Ketones Negative (Negative) Urine Blood Moderate (Negative) Urine Nitrite Negative (Negative) Urine Bilirubin Negative (Negative) Urine Urobilinogen <2.0 (<2.0) mg/dL Ur Leukocyte Esterase Large (Negative) Urine RBC 4 (0-5) /hpf Urine WBC 39 H (0-5) /hpf Ur Squamous Epith Cells 8 H (0-4) /hpf Urine Bacteria Moderate H (None) /hpf Urine Mucus NONE (None) /hpf Disposition Clinical Impression: Biliary colic, UTI (urinary tract infection) Disposition: HOME SELF-CARE Condition: Good Instructions (If sedation given, give patient instructions): Biliary Colic (ED) Additional Instructions: Follow-up with PCP and surgery. Report back to ER with any new or worsening symptoms. Take Motrin and Tylenol as needed for pain control. Take medication as prescribed. Prescriptions: Cephalexin [Keflex] 500 mg PO Q12HR 5 Days #10 cap Ondansetron Odt [Zofran Odt] 4 mg PO Q8HR PRN #20 tab PRN Reason: Nausea Is patient prescribed a controlled substance at d/c from ED?: No Referrals: None,Stated [Primary Care Provider] - 1-2 days Thomas Rainey MD [STAFF PHYSICIAN] - 1-2 days Porfirio Landers DO [Doctor of Osteopathic Medicine] - 1-2 days Time of Disposition: 01:39
[2022-10-10 01:48] VITALS: BP 116/76; PULSE 52; RESP 12; TEMP 98
== END 2022-10-10 01:59 | disposition home or self-care (01) ==
LOC: EC 21:32
DX: K80.50 Calculus of bile duct without cholangitis or cholecystitis without obstruction (principal); N39.0 Urinary tract infection, site not specified; Z79.82 Long term (current) use of aspirin
CPT/HCPCS: 36415; 80053; 82150; 83605; 83615; 83690; 83735; 84550; 85025; 85610; 85730; 81001; 87086; 76705; 99284; 96374; 96375; 96361; J2405; J1885